=== PATIENT | male | born 1980 | race Caucasian/White ===

== ENCOUNTER 2023-07-07 12:49 | Inpatient (IN) | payer MEDICAID, SELFPAY ==
[2023-07-07 13:09] LABS: Basophils % 0.3 %; Eosinophils # 0.1 10^3/uL (0.0-0.8); Eosinophils % 0.5 %; Hematocrit 42.4 % (37-53); Lymphocytes # 2.5 10^3/uL (0.8-4.8); Lymphocytes % 26.3 %; Mean Corpuscular HGB Conc 32.5 g/dL (30-55); Mean Corpuscular Volume 89.1 fl (82-101); Mean Platelet Volume 8.8 fL (7.4-10.4); Monocytes % 10.3 %; Neutrophils # 5.84 10^3/uL (1.8-7.7); Neutrophils % 62.4 %; Nucleated Red Blood Cells % 0 %; Platelet Count 352 10^3/cmm (157-399); Red Blood Count 4.76 10^6/uL (3.85-5.65); Red Cell Distribution Width 13.6 % (12.1-15.1); White Blood Count 9.38 10^3/uL (3.29-11.43)
[2023-07-07 13:13] VITALS: BP 154/84; PULSE 95; RESP 17; TEMP 36.9; O2SAT 98
[2023-07-07 13:16] VITALS: BMI 29.8
[2023-07-07 13:25] LABS: Alanine Aminotransferase 32 U/L (0-41); Albumin Level 4.4 g/dL (3.5-5.2); Alkaline Phosphatase 126 U/L (40-130); Anion Gap 12.1 (5-19); Aspartate Amino Transferase 23 U/L (0-40); Blood Urea Nitrogen 14 mg/dL (6-20); Calcium 9.8 mg/dL (8.5-10.5); Carbon Dioxide 28 mmol/L (22-29); Chloride 102 mmol/L (98-107); Globulin 3.4 g/dL (1.3-4.6); Glomerular Filtration Rate 82.3 mL/min (90-130); Glucose 95 mg/dL (65-115); Osmolality Calculated 286 mOsm/kg (285-295); Potassium 4.1 mmol/L (3.5-5.1); Salicylate 0.7 mg/dL (3-10); Sodium 138 mmol/L (136-145); Total Bilirubin 0.3 mg/dL (0.15-1.2); Total Protein 7.8 g/dL (6.6-8.7)
[2023-07-07 13:28] LABS: Acetaminophen < 5.0 ug/mL (10-30); Alcohol Level < 10 mg/dL (0-10)
[2023-07-07 14:07] LABS: Add Urine Microscopic? NO; Charge for UA Resulting for Rev
[2023-07-07 14:21] LABS: Amphetamines Screen Urine Negative (Negative); Barbiturates Screen Urine Negative (Negative); Benzodiazepines Screen Urine Negative (Negative); Cocaine Screen Urine Negative (Negative); Opiate Screen Urine Negative (Negative); PCP Screen Urine Negative (Negative); THC Screen Urine Positive (Negative)
[2023-07-07 14:26] LABS: Urine Appearance Clear (CLEAR); Urine Color Yellow (Yellow); pH Urine 6.5 (5-7)
[2023-07-07 14:27] LABS: Bilirubin Urine Neg (Negative); Blood Urine Neg (Negative); Glucose Urine UA Norm (Normal); Ketones Urine Negative (Negative); Leukocyte Esterase Urine Negative (Negative); Nitrate Urine Negative (Negative); Protein Urine Neg (Negative); Specific Gravity, Urine 1.015 (1.005-1.030); Urobilinogen Urine Norm (Negative)
[2023-07-07] MEDS: HYDROcodone-acetaminophen 5-325 mg Tablet 1 TAB PO (14:59)
--- NOTE | 2023-07-07 15:03 | W.ED.PSYCHS ---
HPI - Psych General: Chief Complaint: Psychiatric Symptoms Stated Complaint: back pain, SI Time Seen by Provider: 07/07/23 12:55 Source: patient Mode of arrival: ambulatory Limitations: no limitations History of Present Illness: 43-year-old male states he been having low back pain he states he is loading with the other days been having low back pain since then. He also claims him severely depressed he has not been taking any of his depression meds. States has been having suicidal thoughts he states he does have a plan but he does not want talk about it and will not share it with me. Associated symptoms: Reports depression and suicidal ideation Review of Systems Const: Denies: fever(s), chills, body aches or change in appetite Eyes: Denies: blurry vision or eye discomfort ENMT: Denies: throat pain or dental pain Card: Denies: chest pain Resp: Denies: dyspnea GI: Denies: abdominal pain, nausea, vomiting or diarrhea Musc: Reports: back pain; Denies: neck pain Skin/Breast: Denies: rash Neuro: Denies: headache(s) Psych: Reports: depression and suicidal ideation Physical Exam Const: COMMON NORMALS: no acute distress, patient oriented x3 and healthy appearing HENMT: COMMON NORMALS: normocephalic and atraumatic HEAD & SCALP: normocephalic and atraumatic Neck/C-Spine: COMMON NORMALS: full ROM and supple Chest: COMMONS NORMALS: normal inspection of the chest and normal palpation of entire chest wall Resp: COMMON NORMALS: normal respiratory effort, No retractions, No use of accessory muscles and clear to auscultation bilaterally AUSCULTATION: clear to auscultation bilaterally Cardio: COMMON NORMALS: regular rate, regular rhythm and No murmurs present (Cardio) RATE: regular rate RHYTHM: regular rhythm GI: COMMON NORMALS: Normal to inspection, nondistended, normoactive bowel sounds present, Soft to palpation, non-tender and no masses PALPATION: Yes Soft to palpation Back/Pelvis: OTHER: tenderness to left lower back Extremity: COMMON NORMALS: normal to inspection and full ROM Neuro: COMMON NORMALS: patient oriented x3, moves all extremities and no focal motor deficits Psych: COMMON NORMALS: mental status grossly normal, Normal thought process present and cooperative THOUGHT PROCESS: Normal thought process present THOUGHT CONTENT: Yes Suicidality present Skin: COMMON NORMALS: no rashes or lesions noted and no wounds GENERAL SKIN EXAM: no rashes or lesions noted Course Vital Signs: Vital signs: Vital Signs Temperature 98.5 F 07/07/23 13:13 Pulse Rate 95 07/07/23 13:13 Respiratory Rate 17 07/07/23 13:13 Blood Pressure 154/84 07/07/23 13:13 Pulse Oximetry 98 07/07/23 13:13 Oxygen Delivery Me thod Room Air 07/07/23 13:13 MDM - Psych Medical Decision Making Patient presents here with suicidal ideation he also has back pain is likely musculoskeletal in nature. Patient's medically cleared here I spoke to the psychiatrist will admit to the psych marr this time. Medical Records I reviewed the patient's medical records. Lab Data I reviewed the patient's lab results. 07/07/23 13:02 07/07/23 13:02 Laboratory Results WBC 9.38 10^3/uL (3.29-11.43) 07/07/23 13:02 RBC 4.76 10^6/uL (3.85-5.65) 07/07/23 13:02 Hgb 13.80 g/dL (11.27-16.99) 07/07/23 13:02 Hct 42.4 % (37-53) 07/07/23 13:02 MCV 89.1 fl (82-101) 07/07/23 13:02 MCH 29.0 pg (27-33) 07/07/23 13:02 MCHC 32.5 g/dL (30-55) 07/07/23 13:02 RDW 13.6 % (12.1-15.1) 07/07/23 13:02 Plt Count 352 10^3/cmm (157-399) 07/07/23 13:02 MPV 8.8 fL (7.4-10.4) 07/07/23 13:02 Neut % (Auto) 62.4 % 07/07/23 13:02 Lymph % (Auto) 26.3 % 07/07/23 13:02 [place] % (Auto) 10.3 % 07/07/23 13:02 Eos % (Auto) 0.5 % 07/07/23 13:02 Baso % (Auto) 0.3 % 07/07/23 13:02 Neut # (Auto) 5.84 10^3/uL (1.8-7.7) 07/07/23 13:02 Lymph # (Auto) 2.5 10^3/uL (0.8-4.8) 07/07/23 13:02 [place] # (Auto) 1.0 10^3/uL (0.2-0.9) H 07/07/23 13:02 Eos # (Auto) 0.1 10^3/uL (0.0-0.8) 07/07/23 13:02 Baso # (Auto) 0.0 10^3/uL (0.0-0.1) 07/07/23 13:02 Nucleated RBC % (auto) 0 % 07/07/23 13:02 Nucleated RBCs # 0.0 /100WBC 07/07/23 13:02 Sodium 138 mmol/L (136-145) 07/07/23 13:02 Potassium 4.1 mmol/L (3.5-5.1) 07/07/23 13:02 Chloride 102 mmol/L (98-107) 07/07/23 13:02 Carbon Dioxide 28 mmol/L (22-29) 07/07/23 13:02 Anion Gap 12.1 (5-19) 07/07/23 13:02 BUN 14 mg/dL (6-20) 07/07/23 13:02 Creatinine 1.0 mg/dL (0.7-1.2) 07/07/23 13:02 GFR Calculation 82.3 mL/min (90-130) L 07/07/23 13:02 Glucose 95 mg/dL (65-115) 07/07/23 13:02 Calculated Osmolality 286 mOsm/kg (285-295) 07/07/23 13:02 Calcium 9.8 mg/dL (8.5-10.5) 07/07/23 13:02 Total Bilirubin 0.3 mg/dL (0.15-1.2) 07/07/23 13:02 AST 23 U/L (0-40) 07/07/23 13:02 ALT 32 U/L (0-41) 07/07/23 13:02 Alkaline Phosphatase 126 U/L (40-130) 07/07/23 13:02 Total Protein 7.8 g/dL (6.6-8.7) 07/07/23 13:02 Albumin 4.4 g/dL (3.5-5.2) 07/07/23 13:02 Globulin 3.4 g/dL (1.3-4.6) 07/07/23 13:02 Urine Color Yellow (Yellow) 07/07/23 14:02 Urine Appearance Clear (CLEAR) 07/07/23 14:02 Urine pH 6.5 (5-7) 07/07/23 14:02 Ur Specific [place] 1.015 (1.005-1.030) 07/07/23 14:02 Urine Protein Neg (Negative) 07/07/23 14:02 Urine Glucose (UA) Norm (Normal) 07/07/23 14:02 Urine Ketones Negative (Negative) 07/07/23 14:02 Urine Blood Neg (Negative) 07/07/23 14:02 Urine Nitrate Negative (Negative) 07/07/23 14:02 Urine Bilirubin Neg (Negative) 07/07/23 14:02 Urine Urobilinogen Norm mg/dL (Negative) 07/07/23 14:02 Ur Leukocyte Esterase Negative (Negative) 07/07/23 14:02 Salicylates 0.7 mg/dL (3-10) L 07/07/23 13:02 Urine Opiates Screen Negative ng/mL (Negative) 07/07/23 14:02 Acetaminophen < 5.0 ug/mL (10-30) L 07/07/23 13:02 Ur Barbiturates Screen Negative ng/mL (Negative) 07/07/23 14:02 Ur Phencyclidine Scrn Negative ng/mL (Negative) 07/07/23 14:02 Ur Amphetamines Screen Negative ng/mL (Negative) 07/07/23 14:02 U Benzodiazepines Scrn Negative ng/mL (Negative) 07/07/23 14:02 Urine Cocaine Screen Negative ng/mL (Negative) 07/07/23 14:02 U Marijuana (THC) Screen Positive ng/mL (Negative) H 07/07/23 14:02 Ethyl Alcohol < 10 mg/dL (0-10) 07/07/23 13:02 No radiology studies performed this visit Discharge Plan Discharge Admit Provider: Darrell Ponce Condition: Stable Coding Level of Care Code ED Data Processing Manager for Sakina Yang
--- NOTE | 2023-07-07 15:22 | PC.NURSE ---
96 hr patient rights reviewed with patient with assistance of KRISTINA Morton @1300. Education provided, no questions, concerns or needs verbalized at this time. Patient copy left with patient @bedside.
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
[2023-07-07] MEDS: ketorolac 60 mg/2 mL INJ IM (18:43)
[2023-07-07 20:30] VITALS: BP 131/82; PULSE 80; RESP 18; TEMP 36.7; O2SAT 96
[2023-07-07] MEDS: trazodone 50 mg Tablet PO (20:35)
[2023-07-07] MEDS: acetaminophen 325 mg Tablet 650 MG PO (20:35)
[2023-07-07] MEDS: hyDROXYzine 25 mg Capsule 50 MG PO (20:36)
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
[2023-07-07] MEDS: nicotine 4 mg lozenge MUCOUS MEM (20:58)
[2023-07-08] MEDS: ibuprofen 600 mg Tablet PO (04:26)
[2023-07-08] MEDS: nicotine 4 mg lozenge MUCOUS MEM ×5 (09:06→21:27)
[2023-07-08] MEDS: acetaminophen 325 mg Tablet 650 MG PO ×2 (10:03→15:15)
[2023-07-08] MEDS: ibuprofen 800 mg tablet PO ×2 (11:26→19:29)
--- NOTE | 2023-07-08 11:27 | XRR_ITS ---
PROCEDURE INFORMATION: Exam: XR Lumbosacral Spine Exam date and time: 07/08/2023 12:06 PM Age: 43 years old Clinical indication: Low back pain; Patient HX: Lower back pain due to picking firewood TECHNIQUE: Imaging protocol: Radiologic exam of the lumbosacral spine. Views: 2 or 3 views. COMPARISON: No relevant prior studies available. FINDINGS: Bones/joints: Spinal alignment is normal. Vertebral body height is maintained. Intervertebral disc height is maintained. Facet joints are unremarkable. No acute fracture. The visible portion of the pelvis and sacrum is intact. Visible portions of the ribs are intact. Soft tissues: Visible soft tissues are unremarkable. XR/XR lumbar spine 2-3V* [id number] IMPRESSION: No acute findings.
[2023-07-08 14:00] VITALS: BP 143/91; PULSE 88; RESP 20; TEMP 36.9; O2SAT 97
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
[2023-07-08 20:17] VITALS: BP 144/68; PULSE 79; RESP 18; TEMP 36.6; O2SAT 95
[2023-07-08] MEDS: risperiDONE 1 mg Tablet 0.5 MG PO (20:33)
[2023-07-08] MEDS: trazodone 50 mg Tablet PO ×2 (20:34→22:02)
[2023-07-08] MEDS: hyDROXYzine 25 mg Capsule 50 MG PO (22:02)
[2023-07-09] MEDS: OLANZapine 5 mg ODT PO (01:32)
[2023-07-09 06:00] VITALS: RESP 16
[2023-07-09] MEDS: ibuprofen 600 mg Tablet PO (07:39)
[2023-07-09] MEDS: nicotine 4 mg lozenge MUCOUS MEM ×5 (07:39→17:07)
[2023-07-09] MEDS: duloxetine 30 mg Capsule PO (10:08)
[2023-07-09] MEDS: acetaminophen 325 mg Tablet 650 MG PO (11:15)
[2023-07-09] MEDS: docusate sodium 100 mg Capsule PO (12:59)
[2023-07-09 14:00] VITALS: BP 132/92; PULSE 88; RESP 16; TEMP 37.1; O2SAT 98
[2023-07-09] MEDS: ibuprofen 800 mg tablet PO (15:02)
--- NOTE | 2023-07-09 16:11 | P.NPUDS_ITS ---
Diagnoses at Discharge Discharge Diagnosis (1) Depression, unspecified: Status: Acute (2) Suicidal ideation: Status: Acute Reason for Visit Reason for Visit: back pain, SI Brief History: History of Present Illness Capo Dunlap is a 43 year old male with a history of multiple inpatient hospitalizations most recently 1 month ago in [facility] who presented to the emergency department complaining of suicidal ideation along with lower back pain. The patient was admitted to the neuropsychiatric unit for further evaluation and treatment. Patient had reported that he had been residing at [facility] for the past few weeks and had been effectively homeless for several months and states that he had been feeling more depressed recently and stated that he had been having more frequent suicidal thoughts. The patient reports that he has chronic pain in his neck and states that he has been struggling with managing acute back pain. He states that he is had had problems with managing his care since he had an accident where an 80 pound roll of tar paper fell on his neck 2 years ago. He had reported loss of consciousness and states that he has struggled with his mood. He reports that he struggles with chronic headaches and stated that he had been concerned that again was somehow trying to kill him and that he had needed to get off the streets in order to avoid this from occurring. He had reported occasional use of marijuana and stated that he had occasional tempted to use methamphetamine in order to stay awake while he was homeless. He had stated that he had been hospitalized previously for psychosis and depression secondarily to the use of methamphetamine use. Patient reported that he had not been taking any medications recently. He had endorsed past history of paranoia and psychosis but denies any problems today with this problem. He had endorsed having worsening depression with an inability to manage his pain. He reports low energy and reports having infrequent suicidal thoughts. He reports having difficulties falling asleep and staying asleep. He denies any history of mynor. Inpatient hospitalizations: He reports at least 10 previous psychiatric hospitalizations over the last 2 years since the accident. He reports that he had recently been hospitalized in the hospital and near [facility] 1 month ago. Outpatient psychiatric history: He reports limited follow-up with outpatient psychiatrist stating that after his hospitalizations he has had limited psychotherapy or medication management under psychiatrist treatment other than having previously been treated for ADHD during his childhood and approximately 5 years well receiving treatment for ADHD as an adult. Previous medications include Vyvanse. Allergies: No known drug allergies Medical history: Renal stones, low testosterone Surgical history: Lithotripsy Current medications: Risperidone, olanzapine, doxepin, clonidine, Wellbutrin XL 150 mg daily Drug and alcohol history: Patient reports marijuana use, and a history of infrequent methamphetamine use. He has reported no drug or alcohol treatment in the past. Family psychiatric history: None Legal history: None actively Social history: The patient grew up near [facility] which is near [place]. He reports being raised by his biological parents. He reported no history of trauma during his childhood or adulthood. He has 1 older sibling. He had received some special education classes and had diagnosis of ADHD but earned a regular diploma graduated from high school. He had previously worked in [employer] for 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 He is currently not on disability. He had previously been living in a camper on his aunts property but left there a few months ago and had been homeless since that time. He does report having limited social supports. Hospital Course Hospital Course During the hospitalization, the patient had routine laboratory studies which were within normal limits except for a few outliers.? Additionally, there was a general medical evaluation which was also within normal limits and revealed no new acute processes.? At the time of discharge, lethality was denied and psychosis was resolving.? Mood and anxiety were well managed.? The patient endorsed a plan to avoid all drugs of abuse and follow up with the aftercare recommendations of the treatment team.? The patient was evaluated and deemed to be absent credible lethality and had achieved the maximum benefit from an i npatient hospitalization, and so was discharged.? His medication regimen was simplified and he was discharged on only Risperidone 1mg at night and Cymbalta 30mg daily (regarding psychotropic medications) He was agreeable to returning to [facility] as a temporary penitentiary for him. Involuntary Hold Information 96 Hour Hold: 96 Hour Involuntary Admission: Yes 96 Hour Hold Ending Date: 07/14/23 96 Hour Hold Ending Time: 13:37 Mental Status Exam MSE Comments: He is a pleasant white male who appeared his stated age with an antalgic gait as well. There was evidence of mild psychomotor retardation. He described his mood as better at discharge. His affect was mildly restricted at discharge. His speech was monotone in quality but normal in regards to rate and volume. There was no evidence of any abnormal involuntary motor movements tics or tremors appreciated. He denied suicidal ideation with no active plan. He did not endorse any homicidal ideation. He did not appear to be responding to internal stimuli. There was no evidence of delusional thinking. His attention span appeared variable. His recent and remote memory were grossly intact. His insight was fair. His judgment is adequate. His impulse control appeared fair on discharge. He was alert and oriented to person, place ,time ,and situation. Discharge Data Studies Completed and Pending: Completed Studies During Hospitalization Category Date Time Status XR lumbar spine 2 -3V* 44049 Routine Exams 07/08/23 11: Completed Radiology Impressions Lumbar Spine X-Ray 07/08/23 11:27 IMPRESSION: No acute findings. Laboratory Results WBC 9.38 10^3/uL (3.2 9-11.43) 07/07/23 13:02 RBC 4.76 10^6/uL (3.8 5-5.65) 07/07/23 13:02 Hgb 13.80 g/dL (11.27 -16.99) 07/07/23 13:02 Hct 42.4 % (37-53) 07/07/23 13:02 MCV 89.1 fl (82-101) 07/07/23 13:02 MCH 29.0 pg (27-33) 07/07/23 13:02 MCHC 32.5 g/dL (30-55) 07/07/23 13:02 RDW 13.6 % (12.1-15.1 ) 07/07/23 13:02 Plt Count 352 10^3/cmm (157 -399) 07/07/23 13:02 MPV 8.8 fL (7.4-10.4) 07/07/23 13:02 Neut % (Auto) 62.4 % 07/07/23 13:02 Lymph % (Auto) 26.3 % 07/07/23 13:02 Coffee % (Auto) 10.3 % 07/07/23 13:02 Eos % (Auto) 0.5 % 07/07/23 13:02 Baso % (Auto) 0.3 % 07/07/23 13:02 Neut # (Auto) 5.84 10^3/uL (1.8 -7.7) 07/07/23 13:02 Lymph # (Auto) 2.5 10^3/uL (0.8- 4.8) 07/07/23 13:02 Coffee # (Auto) 1.0 10^3/uL (0.2- 0.9) H 07/07/23 13:02 Eos # (Auto) 0.1 10^3/uL (0.0- 0.8) 07/07/23 13:02 Baso # (Auto) 0.0 10^3/uL (0.0- 0.1) 07/07/23 13:02 Nucleated RBC % (a uto) 0 % 07/07/23 13:02 Nucleated RBCs # 0.0 /100WBC 07/07/23 13:02 Sodium 138 mmol/L (136-1 45) 07/07/23 13:02 Potassium 4.1 mmol/L (3.5-5 .1) 07/07/23 13:02 Chloride 102 mmol/L (98-10 7) 07/07/23 13:02 Carbon Dioxide 28 mmol/L (22-29) 07/07/23 13:02 Anion Gap 12.1 (5-19) 07/07/23 13:02 BUN 14 mg/dL (6-20) 07/07/23 13:02 Creatinine 1.0 mg/dL (0.7-1. 2) 07/07/23 13:02 GFR Calculation 82.3 mL/min (90-1 30) L 07/07/23 13:02 Glucose 95 mg/dL (65-115) 07/07/23 13:02 Calculated Osmolal ity 286 mOsm/kg (285- 295) 07/07/23 13:02 Calcium 9.8 mg/dL (8.5-10 .5) 07/07/23 13:02 Total Bilirubin 0.3 mg/dL (0.15-1 .2) 07/07/23 13:02 AST 23 U/L (0-40) 07/07/23 13:02 ALT 32 U/L (0-41) 07/07/23 13:02 Alkaline Phosphata se 126 U/L (40-130) 07/07/23 13:02 Total Protein 7.8 g/dL (6.6-8.7 ) 07/07/23 13:02 Albumin 4.4 g/dL (3.5-5.2 ) 07/07/23 13:02 Globulin 3.4 g/dL (1.3-4.6 ) 07/07/23 13:02 Urine Color Yellow (Yellow) 07/07/23 14:02 Urine Appearance Clear (CLEAR) 07/07/23 14:02 Urine pH 6.5 (5-7) 07/07/23 14:02 Ur Specific Gravit y 1.015 (1.005-1.0 30) 07/07/23 14:02 Urine Protein Neg (Negative) 07/07/23 14:02 Urine Glucose (UA) Norm (Normal) 07/07/23 14:02 Urine Ketones Negative (Negati ve) 07/07/23 14:02 Urine Blood Neg (Negative) 07/07/23 14:02 Urine Nitrate Negative (Negati ve) 07/07/23 14:02 Urine Bilirubin Neg (Negative) 07/07/23 14:02 Urine Urobilinogen Norm mg/dL (Negat raisa) 07/07/23 14:02 Ur Leukocyte Jenny ase Negative (Negati ve) 07/07/23 14:02 Salicylates 0.7 mg/dL (3-10) L 07/07/23 13:02 Urine Opiates Scre en Negative ng/mL (N egative) 07/07/23 14:02 Acetaminophen < 5.0 ug/mL (10-3 0) L 07/07/23 13:02 Ur Barbiturates Sc reen Negative ng/mL (N egative) 07/07/23 14:02 Ur Phencyclidine S crn Negative ng/mL (N egative) 07/07/23 14:02 Ur Amphetamines Sc reen Negative ng/mL (N egative) 07/07/23 14:02 U Benzodiazepines Scrn Negative ng/mL (N egative) 07/07/23 14:02 Urine Cocaine Scre en Negative ng/mL (N egative) 07/07/23 14:02 U Marijuana (THC) Screen Positive ng/mL (N egative) H 07/07/23 14:02 Ethyl Alcohol < 10 mg/dL (0-10) 07/07/23 13:02 Vitals: Last Vital Signs Temp 98.7 F 07/09/23 14:00 Pulse 88 07/09/23 14:00 Resp 16 07/09/23 14:00 BP 132/92 07/09/23 14:00 Pulse Ox 98 07/09/23 14:00 O2 Del Method Room Air 07/09/23 14:00 Discharge Plan Discharge Patient Disposition: Home Condition: Stable Prescriptions: New risperidone 1 mg Tablet 1 mg PO 2100 30 Days Qty: 30 1RF duloxetine 30 mg Capsule,Delayed Release(Dr/Ec) 30 mg PO DAILY 30 Days Qty: 30 1RF Discontinued doxepin 50 mg capsule 50 mg PO BEDTIME clonidine HCl 0.1 mg tablet 0.1 mg PO BEDTIME olanzapine 10 mg tablet 10 mg PO BEDTIME risperidone 1 mg tablet 1 mg PO BID bupropion HCl 150 mg tablet extended release 24 hr 150 mg PO DAILY Discharge Orders: Discharge Order (Routine); Ordered 07/09/23 Ordered By: Edmund Thorne Referrals: [facility] [Outside] - 07/14/23 7:30 am (Initial appointment set for 07/14/23 @ 7:30 am. ) Riley Arora MD [Physician] - 07/13/23 3:00 pm (Establish care/hospital follow up) Discharge Diet: Usual diet Discharge Activity: Resume usual activity Patient Instructions: Opioid Safety Discharge Attestations NPU Time Spent in Discharge Care*: less than 30 min Specific Discharge Activities: Specific discharge activities: educating patient, discussing with case checker/social workers/dc planners and documenting/other paperwork Coding Level of Care Code Acute Code for Chg Fwd Diagnoses Depression, unspecified F32.A Suicidal ideation R45.851
[2023-07-09 16:37] VITALS: BP 132/92; PULSE 88; RESP 16; TEMP 37.1; O2SAT 98
== END 2023-07-09 18:00 | disposition home or self-care (01) | DRG 881 ==
LOC: ER 15:43 → NP 18:39
PROVIDERS: Admitting Provider Psychiatry & Neurology Psychiatry; Emergency Provider Emergency Medicine; Visit Provider Psychiatry & Neurology Psychiatry
DX: F32.A Depression, unspecified (principal); R45.851 Suicidal ideations; Z59.01 Sheltered homelessness; M54.50 Low back pain, unspecified; M54.2 Cervicalgia; G89.29 Other chronic pain
CPT/HCPCS: 36415; 72100; 80053; 80306; 80307; 81003; 85025; 96372; 97165; 99285; J1885

== ENCOUNTER → 2023-07-13 15:47 | Outpatient (BNVA) | payer MEDICAID, SELFPAY | PROVIDERS: Visit Provider Family Medicine Adult Medicine | DX: E03.9 Hypothyroidism, unspecified (principal); Z87.898 Personal history of other specified conditions; Z87.442 Personal history of urinary calculi; Z09 Encounter for follow-up examination after completed treatment for conditions other than malignant neoplasm; E06.3 Autoimmune thyroiditis; F33.3 Major depressive disorder, recurrent, severe with psychotic symptoms; M54.2 Cervicalgia; M54.9 Dorsalgia, unspecified; G89.29 Other chronic pain; F41.9 Anxiety disorder, unspecified | CPT/HCPCS: 84443; G0103 ==

== ENCOUNTER → 2023-08-27 13:34 | Outpatient (BNVA) | payer MEDICAID, SELFPAY | PROVIDERS: Visit Provider Registered Nurse Neonatal Intensive Care | DX: J02.9 Acute pharyngitis, unspecified (principal) | CPT/HCPCS: 87880 ==

== ENCOUNTER → 2023-10-11 12:28 | Outpatient (BNVA) | payer MEDICAID, SELFPAY | PROVIDERS: Visit Provider Nurse Practitioner Family | DX: E03.8 Other specified hypothyroidism (principal); E06.3 Autoimmune thyroiditis; J02.9 Acute pharyngitis, unspecified; R30.0 Dysuria; J30.2 Other seasonal allergic rhinitis; Z11.3 Encounter for screening for infections with a predominantly sexual mode of transmission | CPT/HCPCS: 87491; 87591 ==

== ENCOUNTER 2024-02-18 06:46 | Emergency (ER) | payer MEDICAID, SELFPAY ==
[2024-02-18 07:03] VITALS: BP 165/106; PULSE 101; RESP 18; TEMP 36.7; O2SAT 98; BMI 29.1
--- NOTE | 2024-02-18 07:16 | W.ED.BACK ---
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 He has some pain in his left leg. He has not had any urinary retention or fecal incontinence. This began on 8 to 7 days ago. He has not been seen for it prior to this. No traumatic injury falls motor vehicle accidents etc. Patient refers pain to the lumbosacral area. He states he has a history of kidney stones in the past but this feels different from his stones. Associated symptoms: Deny abdominal pain, chills, dysuria, fever(s) or urinary urgency Review of Systems Const: Denies: fever(s) or chills Card: Denies: chest pain Resp: Denies: dyspnea GI: Reports: change in stool character (loose stools); Denies: abdominal pain : Reports: urinary frequency; Denies: flank pain, dysuria or urinary urgency Musc: Denies: neck pain or back pain Skin/Breast: Denies: rash PFSH ED PFSH: Medical History Allergic rhinitis, seasonal URI (upper respiratory infection) Psychiatric care Personal history of kidney stones History of nocturia Anxiety Chronic neck and back pain Hypothyroid ADHD Low testosterone in male Surgical History H/O lithotripsy Hx of LASIK Family History Father No problems noted. Mother Benign tumor of back Mental and behavioral problem Social History Smoking and tobacco/nicotine status: current every day tobacco/nicotine user Quit status (tobacco/nicotine): not considering quitting Alcohol intake: former Substance/Drug Use: current Substance/Drug use frequency: Special occassions/opportunity only Physical Exam Const: GENERAL APPEARANCE: cooperative ORIENTATION/CONSCIOUSNESS: Yes awake, Yes oriented to person, Yes oriented to place and Yes oriented to time HENMT: COMMON NORMALS: normocephalic, atraumatic and hearing grossly normal bilaterally HEAD & SCALP: normocephalic and atraumatic Resp: COMMON NORMALS: normal respiratory effort, No retractions, No use of accessory muscles and clear to auscultation bilaterally AUSCULTATION: clear to auscultation bilaterally Cardio: COMMON NORMALS: regular rate, regular rhythm and No murmurs present (Cardio) RATE: regular rate RHYTHM: regular rhythm Extremity: COMMON NORMALS: normal to inspection, capillary refill normal, no clubbing, cyanosis or edema, no calf tenderness and no pedal edema Neuro: SENSORIUM/ORIENTATION: Yes oriented to person, Yes oriented to place and Yes oriented to time OTHER: Deep tendon reflexes +1/4 at the patellar tendon dorsal and plantarflexion 5 5 sensation lower extremities normal straight leg raising negative Skin: COMMON NORMALS: no rashes or lesions noted GENERAL SKIN EXAM: no rashes or lesions noted Course Vital Signs: Vital signs: Vital Signs Temperature 98.0 F 02/18/24 07:03 Pulse Rate 90 02/18/24 08:52 Respiratory Rate 18 02/18/24 07:03 Blood Pressure 130/82 02/18/24 08:52 Pulse Oximetry 98 02/18/24 08:52 Oxygen Delivery Me thod Room Air 02/18/24 07:03 MDM - Back Pain/Injury Medical Decision Making Suspect he has a nerve root irritation. A large component of this is musculoskeletal. For now would recommend the anti-inflammatories muscle relaxers and a steroid taper. He did have some improvement of symptoms since the original onset and as well as with medications given today. X-rays of the low back did not show any acute issues. Will discharge patient and have him follow-up with orthopedic spine clinic. Given 1 week off work to allow back to improve. Labs I reviewed the patient's lab results. Radiology Impressions Lumbar Spine X-Ray 02/18/24 07:18 IMPRESSION: Lumbar spine stable without significant discogenic or vertebral body abnormality. Sacroiliitis of unknown activity and significance. Stable. Laboratory Results Urine Color Yellow (Yellow) 02/18/24 07:23 Urine Appearance Clear (CLEAR) 02/18/24 07:23 Urine pH 6.0 (5-7) 02/18/24 07:23 Ur Specific [place] 1.010 (1.005-1.030) 02/18/24 07:23 Urine Protein Negative (Negative) 02/18/24 07:23 Urine Glucose (UA) Negative (Normal) 02/18/24 07:23 Urine Ketones Negative (Negative) 02/18/24 07:23 Urine Blood Negative (Negative) 02/18/24 07:23 Urine Nitrate Negative (Negative) 02/18/24 07:23 Urine Bilirubin Negative (Negative) 02/18/24 07:23 Urine Urobilinogen 1.0 mg/dL (Negative) 02/18/24 07:23 Ur Leukocyte Esterase Negative (Negative) 02/18/24 07:23 Urine RBC 0-2 /hpf (0-2) 02/18/24 07:23 Urine WBC 0-5 /hpf (0-5) 02/18/24 07:23 Ur Squamous Epith Cells 0-5 /hpf (0-5) 02/18/24 07:23 Amorphous Sediment Not Reportable 02/18/24 07:23 Urine Bacteria None seen /hpf (NONE) 02/18/24 07:23 Hyaline Casts 0-4 /lpf H 02/18/24 07:23 All radiology interpretation(s) finalized by discharge Discharge Plan Discharge Patient Disposition: Home Clinical Impression: Left lumbar radiculitis Condition: Stable Prescriptions: New prednisone 20 mg tablet 20 mg PO TID Qty: 15 0RF Rx Instructions: 1 p.o. 3 times daily x3 days, 1 p.o. twice daily x2 days, 1 p.o. daily x2 days diclofenac sodium 75 mg tablet,delayed release (DR/EC) 75 mg PO Q12H PRN (Reason: pain) Qty: 20 0RF methocarbamol 500 mg tablet 500 mg PO TID Qty: 30 0RF No Action levothyroxine 75 mcg capsule 75 mcg PO DAILY 30 Days Qty: 30 5RF Flonase Allergy Relief 50 mcg/actuation spray,suspension 1 spray intranasal BID PRN (Reason: ALLERGIES) Discharge Orders: Discharge ED (Routine); Ordered 02/18/24 Ordered By: Silverio Calles Discharge Diet: Usual diet Discharge Activity: Resume usual activity Patient Instructions: Opioid Safety, Pain Management Activity Restrictions/Additional Instructions: Thank you for choosing [facility] for your healthcare needs today. It is very important that you follow up as instructed or that you return to the Emergency Department should you have concerns or if your condition changes or worsens in any way. You were seen today for back pain with left leg radicular symptoms. Recommend you start oral steroids tomorrow you can use the diclofenac and the methocarbamol as needed for discomfort. Case management will make arrangements for you to follow-up with orthopedic spine surgery. Stand Alone Forms: Work/School Release Coding Level of Care Code ED Teletray Operator for Sakina Yang
--- NOTE | 2024-02-18 07:18 | XR_ITS ---
WS: [id number] XR lumbar spine 2-3V* [id number] REASON FOR EXAM: back pain FINDINGS: The lumbar spine is unchanged compared to 06/18/2023. No focal vertebral body abnormality. Disc spaces intact with minimal narrowing at L5-S1. Wide sclerotic margins along the sacroiliac joints without erosion, bridging, or fusion. No change fr om 07/08/2023. XR/XR lumbar spine 2-3V* [id number] IMPRESSION: Lumbar spine stable without significant discogenic or vertebral body abnormalit y. Sacroiliitis of unknown activity and significance. Stable.
[2024-02-18 07:30] LABS: Charge for UA Resulting for Rev
[2024-02-18 07:38] LABS: Bilirubin Urine Negative (Negative); Blood Urine Negative (Negative); Glucose Urine UA Negative (Normal); Ketones Urine Negative (Negative); Leukocyte Esterase Urine Negative (Negative); Nitrate Urine Negative (Negative); Protein Urine Negative (Negative); Urine Appearance Clear (CLEAR); Urine Color Yellow (Yellow)
[2024-02-18 07:42] LABS: Bacteria Urine None Seen /hpf; Hyaline Casts Urine 0-4 /lpf; RBC Urine 0-2 /hpf (0-2); Squamous Epithelial Cell Urine 0-5 /hpf (0-5); WBC Urine 0-5 /hpf (0-5)
[2024-02-18] MEDS: dexamethasone 10 mg/mL INJ IM (07:42)
[2024-02-18] MEDS: ketorolac 30 mg/mL INJ IVP (07:42)
[2024-02-18] MEDS: orphenadrine 30 mg/mL Inj 2 mL 60 MG IM (07:44)
[2024-02-18 08:52] VITALS: BP 130/82; PULSE 90; O2SAT 98
--- NOTE | 2024-02-19 05:05 | DCPLANNER ---
Message sent to Ortho Spine surgeon referral- left leg radiculopathy-
== END 2024-02-18 08:53 | disposition home or self-care (01) ==
PROVIDERS: Emergency Provider Family Medicine
DX: M54.16 Radiculopathy, lumbar region (principal)
CPT/HCPCS: 72100; 81003; 81015; 96372; 96374; 99284; J1100; J1885; J2360

== ENCOUNTER → 2024-04-25 13:54 | Outpatient (BNVA) | payer MEDICAID, SELFPAY | PROVIDERS: Visit Provider Orthopaedic Surgery | DX: M54.9 Dorsalgia, unspecified (principal) | CPT/HCPCS: 72110 ==

== ENCOUNTER 2024-05-03 15:05 | Outpatient (CLI) | payer OTHER, SELFPAY ==
--- NOTE | 2024-05-03 15:15 | MR_ITS ---
WS: [id number] MRI LUMBAR SPINE NONCONTRAST HISTORY: back pain COMPARISON: None available. TECHNIQUE: Sagittal and axial multisequence imaging is submitted. Normal lumbar alignment with no compression fractures or marrow edema. Mild disc desiccation at L5-S1 without loss of height. Conus terminates normally at L1-2 disc level. L1-L2: Small bilateral paracentral disc protrusions without stenosis. L2-L3: Mild facet and ligamentum flavum arthropathy. No stenosis or focal disc protrusion. L3-L4: Mild ligamentum flavum and facet arthritis. L4-L5: Mild annular disc bulging with small bilateral foraminal disc protrusions which slightly encro ach upon the exiting L4 nerve roots. No stenosis. L5-S1: Mild annular disc bulging with a central disc protrusion. Small bilateral foraminal osteophyte s. Mild to moderate LEFT foraminal stenosis due to disc bulging and osteophytes. Mild RIGHT foraminal stenosis. MR/MR lumbar spine wo con* [id number] IMPRESSION: 1. No high-grade central stenosis or acute fracture. 2. L5-S1: Mild to moderate LEFT foraminal stenosis due to disc disease and ost eophytes. Mild RIGHT foraminal stenosis. Most significant encroachment upon the LEFT exiting L5 nerve root. 3. Small central disc protrusion at L5-S1. Does not appear to be contacting th e S1 nerve roots. 4. L4-5: Small bilateral foraminal disc protrusions minimally encroaching upon the exiting L4 nerve roots.
== END 2024-05-03 15:06 | disposition home or self-care (01) ==
LOC: RAD 15:06
PROVIDERS: Visit Provider Orthopaedic Surgery
DX: M99.63 Osseous and subluxation stenosis of intervertebral foramina of lumbar region (principal); M99.64 Osseous and subluxation stenosis of intervertebral foramina of sacral region
CPT/HCPCS: 72148

== ENCOUNTER → 2024-05-04 14:39 | Outpatient (BNVA) | payer OTHER, SELFPAY | PROVIDERS: Visit Provider Family Medicine | DX: R07.9 Chest pain, unspecified (principal) | CPT/HCPCS: 71046 ==

== ENCOUNTER 2024-05-04 14:59 | Outpatient (CLI) | payer OTHER, SELFPAY ==
[2024-05-04 15:41] LABS: Basophils % 0.5 %; Eosinophils # 0.1 10^3/uL (0.0-0.8); Eosinophils % 0.8 %; Lymphocytes # 2.5 10^3/uL (0.8-4.8); Lymphocytes % 32.5 %; Mean Corpuscular Hemoglobin 29.4 pg (27-33); Mean Platelet Volume 9.2 fL (7.4-10.4); Monocytes # 0.7 10^3/uL (0.2-0.9); Monocytes % 8.6 %; Neutrophils # 4.41 10^3/uL (1.8-7.7); Neutrophils % 57.3 %; Nucleated Red Blood Cells % 0 %; Platelet Count 340 10^3/cmm (157-399); Red Blood Count 4.83 10^6/uL (3.85-5.65); Red Cell Distribution Width 12.5 % (12.1-15.1); White Blood Count 7.69 10^3/uL (3.29-11.43)
[2024-05-04 16:13] LABS: Alanine Aminotransferase 37 U/L (0-41); Albumin Level 4.6 g/dL (3.5-5.2); Alkaline Phosphatase 92 U/L (40-130); Aspartate Amino Transferase 34 U/L (0-40); Blood Urea Nitrogen 14 mg/dL (6-20); Carbon Dioxide 27 mmol/L (22-29); Chloride 102 mmol/L (98-107); Globulin 3.2 g/dL (1.3-4.6); Glomerular Filtration Rate 73.8 mL/min (90-130); Glucose 104 mg/dL (65-115); Lipase 25 U/L (13-60); Osmolality Calculated 289 mOsm/kg (285-295); Sodium 139 mmol/L (136-145); Total Bilirubin 0.2 mg/dL (0.15-1.2); Total Protein 7.8 g/dL (6.6-8.7)
[2024-05-04 16:26] LABS: Estmated Average Glucose 108; Hemoglobin A1C 5.4 % (4.0-6.0)
[2024-05-04 17:04] LABS: Free T4 Free Thyroxine 1.16 ng/dL (0.82-1.77)
[2024-05-05 15:24] LABS: Anti-Nuclear Antibody Screen NEGATIVE (NEGATIVE)
[2024-05-05 15:39] LABS: RPR w(Moniotor) w/REFL Titer NON-REACTIVE (NON-REACTIVE)
[2024-05-05 22:39] LABS: HLA-B27 NEGATIVE (NEGATIVE)
[2024-05-06 19:40] LABS: Beef (27) IgE <0.10 kU/L; Beef Class 0; Lamb (F88) IgE <0.10 kU/L; Lamb Class 0; Pork (F26) IgE <0.10 kU/L; Pork Class 0
[2024-05-09 18:59] LABS: Galactose-alpha-1,3 IgE <0.10 kU/L (<0.10)
== END 2024-05-04 15:00 | disposition home or self-care (01) ==
LOC: LAB 15:03
PROVIDERS: PCP Family Medicine; Visit Provider Family Medicine
DX: R07.9 Chest pain, unspecified (principal); E03.8 Other specified hypothyroidism; E06.3 Autoimmune thyroiditis; H20.9 Unspecified iridocyclitis; R19.7 Diarrhea, unspecified
CPT/HCPCS: 36415; 80053; 83036; 83690; 84439; 84443; 85025; 86003; 86008; 86038; 86140; 86431; 86592; 86812

== ENCOUNTER 2024-05-18 06:58 | Outpatient (RCR) | payer OTHER, SELFPAY | END 2024-06-10 23:59 | disposition home or self-care (01) | LOC: SPT 06:58 | PROVIDERS: Visit Provider Orthopaedic Surgery | DX: M54.50 Low back pain, unspecified (principal) | CPT/HCPCS: 97110; 97161 ==

== ENCOUNTER 2024-06-11 06:00 | Outpatient (RCR) | payer OTHER, SELFPAY | END 2024-07-11 23:59 | disposition home or self-care (01) | LOC: SPT 06:00 | PROVIDERS: Visit Provider Orthopaedic Surgery | DX: M54.9 Dorsalgia, unspecified (principal); G89.29 Other chronic pain | CPT/HCPCS: 97110 ==

== ENCOUNTER → 2024-06-30 09:33 | Outpatient (BNVA) | payer OTHER, SELFPAY | DX: J02.9 Acute pharyngitis, unspecified (principal) | CPT/HCPCS: 87880 ==

== ENCOUNTER 2024-07-12 06:00 | Outpatient (RCR) | payer OTHER, SELFPAY | END 2024-08-11 23:59 | disposition home or self-care (01) | LOC: SPT 06:00 | PROVIDERS: Visit Provider Orthopaedic Surgery | DX: M54.50 Low back pain, unspecified (principal) | CPT/HCPCS: 97110 ==

== ENCOUNTER → 2024-08-11 11:14 | Outpatient (BNVA) | payer OTHER, SELFPAY | PROVIDERS: Visit Provider Family Medicine | DX: E03.8 Other specified hypothyroidism (principal); E06.3 Autoimmune thyroiditis; R19.7 Diarrhea, unspecified; K92.1 Melena | CPT/HCPCS: 83540; 84439; 84443; 85025 ==

== ENCOUNTER 2024-08-12 06:00 | Outpatient (RCR) | payer OTHER, SELFPAY | END 2024-09-08 23:59 | disposition home or self-care (01) | LOC: SPT 06:00 | PROVIDERS: Visit Provider Orthopaedic Surgery | DX: M54.50 Low back pain, unspecified (principal) | CPT/HCPCS: 97110 ==

== ENCOUNTER 2024-09-09 06:00 | Outpatient (RCR) | payer OTHER, SELFPAY | END 2024-10-09 23:59 | disposition home or self-care (01) | LOC: SPT 06:00 | PROVIDERS: Visit Provider Orthopaedic Surgery | DX: M54.50 Low back pain, unspecified (principal) | CPT/HCPCS: 97110 ==

== ENCOUNTER 2024-10-05 11:29 | Inpatient (IN) | payer SELFPAY ==
[2024-10-05 11:50] VITALS: BP 144/92; PULSE 98; RESP 18; TEMP 36.6; O2SAT 96
[2024-10-05 12:06] VITALS: BP 133/98; PULSE 99; RESP 14; TEMP 36.7; O2SAT 99; BMI 29.0
--- NOTE | 2024-10-05 12:07 | W.ED.PSYCHS ---
HPI - Psych General: Chief Complaint: Psychiatric Symptoms Stated Complaint: anxiety Time Seen by Provider: 10/05/24 11:54 Source: patient Mode of arrival: ambulatory Limitations: no limitations History of Present Illness: 44-year-old male states that he has been having extreme anxiety along with depression since February. States his life is falling apart and he is now having suicidal ideations with a plan to kill himself and wants to get help. He denies any worsening improving factors. Associated symptoms: Reports depression and suicidal ideation Related Data Home Medications ?Medication ?Instructions ?Recorded ?Confirmed fluticasone propionate 50 1 spray intranasal BID PRN 02/18/24 10/02/24 mcg/actuation nasal ALLERGIES spray,suspension (Flonase Allergy Relief) Previous Rx's ?Medication ?Instructions ?Recorded levothyroxine 100 mcg tablet 100 mcg PO DAILY #90 tabs 05/05/24 tens unit #1 ea 06/27/24 albuterol sulfate 90 mcg/actuation 2 puff inhalation Q6H PRN 06/30/24 aerosol inhaler shortness of breath or wheezing #8.5 grams gabapentin 300 mg capsule 600 mg (2 x 300 mg) PO TID 30 days 09/12/24 #180 caps duloxetine 30 mg capsule,delayed 30 mg PO DAILY PRN muscle pain #30 10/02/24 release (Cymbalta) caps methylprednisolone 4 mg tablets in See Rx Instructions PO PER PKG DIR 10/02/24 a dose pack (Medrol (Hansel)) #21 ea Allergies Allergy/AdvReac Type Severity Reaction Status Date / Time No Known Allergies Allergy Verified 10/02/24 12:50 Review of Systems Const: Denies: fever(s), chills, body aches or change in appetite Eyes: Denies: eye discomfort ENMT: Denies: throat pain or dental pain Card: Denies: chest pain Resp: Denies: dyspnea GI: Denies: abdominal pain, nausea, vomiting or diarrhea Musc: Denies: neck pain or back pain Skin/Breast: Denies: rash Neuro: Denies: headache(s) Psych: Reports: depression and suicidal ideation [facility] ED PFSH: Medical History Reactive depression (situational) Hematochezia Diarrhea Iridocyclitis Dxed OD by DR. Guzmán OD in [place] Allergic rhinitis, seasonal Personal history of kidney stones History of nocturia Anxiety Chronic neck and back pain Hypothyroid ADHD Low testosterone in male he is getting testosterone through on line doctor Surgical History H/O lithotripsy Hx of LASIK Family History Father Liver disease of alcoholic cirrhosis Mother Benign tumor of back Mental and behavioral problem Heart disease, Onset Age: 58 of [place] 2 wks shy of divorce Grandfather Prostate cancer Social History Smoking and tobacco/nicotine status: current every day tobacco/nicotine user e-cigarettes Quit status (tobacco/nicotine): not considering quitting Alcohol intake: former Substance/Drug Use: never Household members: significant other Marital status: Single Number of children: 0 Highest education level completed: High School Graduate Current occupational status: employed 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[employer] Physical Exam Const: COMMON NORMALS: no acute distress, patient oriented x3 and healthy appearing HENMT: COMMON NORMALS: normocephalic and atraumatic HEAD & SCALP: normocephalic and atraumatic Eye: COMMON NORMALS: conjunctivae normal CONJUNCTIVA: Yes conjunctivae normal Neck/C-Spine: COMMON NORMALS: full ROM and supple Chest: COMMONS NORMALS: normal inspection of the chest Resp: COMMON NORMALS: normal respiratory effort Cardio: COMMON NORMALS: regular rate RATE: regular rate Extremity: COMMON NORMALS: normal to inspection and full ROM Neuro: COMMON NORMALS: patient oriented x3, moves all extremities and no focal motor deficits Psych: COMMON NORMALS: Normal thought process present MOOD & AFFECT: Yes anxious THOUGHT PROCESS: Normal thought process present THOUGHT CONTENT: Yes Suicidality present Skin: COMMON NORMALS: no rashes or lesions noted and no wounds GENERAL SKIN EXAM: no rashes or lesions noted Course Vital Signs: Vital signs: Vital Signs Temperature 98.1 F 10/05/24 12:06 Pulse Rate 99 10/05/24 12:06 Respiratory Rate 14 10/05/24 12:06 Blood Pressure 133/98 10/05/24 12:06 Pulse Oximetry 99 10/05/24 12:06 Oxygen Delivery Me thod Room Air 10/05/24 12:06 MDM - Psych Medical Decision Making Patient presents here with suicidal ideations he is medically cleared I spoke to the psychiatrist will admit at this time Medical Records I reviewed the patient's medical records. Lab Data I reviewed the patient's lab results. 10/05/24 12:19 10/05/24 12:19 Laboratory Results WBC 9.31 10^3/uL (3.29-11.43) 10/05/24 12:19 RBC 4.97 10^6/uL (3.85-5.65) 10/05/24 12:19 Hgb 15.00 g/dL (11.27-16.99) 10/05/24 12:19 Hct 45.2 % (37-53) 10/05/24 12:19 MCV 90.9 fl (82-101) 10/05/24 12:19 MCH 30.2 pg (27-33) 10/05/24 12:19 MCHC 33.2 g/dL (30-55) 10/05/24 12:19 RDW 13.1 % (12.1-15.1) 10/05/24 12:19 Plt Count 381 10^3/cmm (157-399) 10/05/24 12:19 MPV 9.5 fL (7.4-10.4) 10/05/24 12:19 Neut % (Auto) 62.9 % 10/05/24 12:19 Lymph % (Auto) 27.8 % 10/05/24 12:19 Stafford % (Auto) 8.8 % 10/05/24 12:19 Eos % (Auto) 0.0 % 10/05/24 12:19 Baso % (Auto) 0.3 % 10/05/24 12:19 Neut # (Auto) 5.85 10^3/uL (1.8-7.7) 10/05/24 12:19 Lymph # (Auto) 2.6 10^3/uL (0.8-4.8) 10/05/24 12:19 Stafford # (Auto) 0.8 10^3/uL (0.2-0.9) 10/05/24 12:19 Eos # (Auto) 0.0 10^3/uL (0.0-0.8) 10/05/24 12:19 Baso # (Auto) 0.0 10^3/uL (0.0-0.1) 10/05/24 12:19 Nucleated RBC % (auto) 0 % 10/05/24 12:19 Nucleated RBCs # 0.0 /100WBC 10/05/24 12:19 Urine Opiates Screen Negative ng/mL (Negative) 10/05/24 12:00 Ur Barbiturates Screen Negative ng/mL (Negative) 10/05/24 12:00 Ur Phencyclidine Scrn Negative ng/mL (Negative) 10/05/24 12:00 Ur Amphetamines Screen Negative ng/mL (Negative) 10/05/24 12:00 U Benzodiazepines Scrn Negative ng/mL (Negative) 10/05/24 12:00 Urine Cocaine Screen Negative ng/mL (Negative) 10/05/24 12:00 U Marijuana (THC) Screen Positive ng/mL (Negative) H 10/05/24 12:00 No radiology studies performed this visit Discharge Plan Discharge Patient Disposition: Admitted As Inpatient Admit Provider: Darrell Ponce Clinical Impression: Suicidal ideation Condition: Stable Coding Level of Care Code ED Buyer Planner for Sakina Yang
[2024-10-05] MEDS: LORazepam 2 mg/mL INJ 1 mL IM (12:16)
[2024-10-05 12:25] LABS: Amphetamines Screen Urine Negative (Negative); Barbiturates Screen Urine Negative (Negative); Benzodiazepines Screen Urine Negative (Negative); Cocaine Screen Urine Negative (Negative); Opiate Screen Urine Negative (Negative); PCP Screen Urine Negative (Negative); THC Screen Urine Positive (Negative)
--- NOTE | 2024-10-05 12:28 | PC.NURSE ---
96 hour hold rights read and reviewed with patient. Quan from Security present during reading of rights. Patient verbalized understandings and copy of rights given to patient.
[2024-10-05 12:31] LABS: Basophils % 0.3 %; Hematocrit 45.2 % (37-53); Lymphocytes # 2.6 10^3/uL (0.8-4.8); Lymphocytes % 27.8 %; Mean Corpuscular HGB Conc 33.2 g/dL (30-55); Mean Corpuscular Hemoglobin 30.2 pg (27-33); Mean Corpuscular Volume 90.9 fl (82-101); Mean Platelet Volume 9.5 fL (7.4-10.4); Monocytes # 0.8 10^3/uL (0.2-0.9); Monocytes % 8.8 %; Neutrophils # 5.85 10^3/uL (1.8-7.7); Neutrophils % 62.9 %; Nucleated Red Blood Cells % 0 %; Platelet Count 381 10^3/cmm (157-399); Red Blood Count 4.97 10^6/uL (3.85-5.65); Red Cell Distribution Width 13.1 % (12.1-15.1); White Blood Count 9.31 10^3/uL (3.29-11.43)
[2024-10-05 13:04] LABS: Alanine Aminotransferase 19 U/L (0-41); Albumin Level 4.4 g/dL (3.5-5.2); Alkaline Phosphatase 76 U/L (40-130); Anion Gap 16.5 (5-19); Aspartate Amino Transferase 25 U/L (0-40); Blood Urea Nitrogen 9 mg/dL (6-20); Calcium 9.2 mg/dL (8.5-10.5); Carbon Dioxide 25 mmol/L (22-29); Chloride 102 mmol/L (98-107); Glomerular Filtration Rate 73.4 mL/min (90-130); Glucose 116 mg/dL (65-115); Osmolality Calculated 290 mOsm/kg (285-295); Potassium 3.5 mmol/L (3.5-5.1); Sodium 140 mmol/L (136-145); Thyroid Stimulating Hormone 0.06 uIU/mL (0.27-4.20); Total Bilirubin 0.4 mg/dL (0.15-1.2); Total Protein 7.4 g/dL (6.6-8.7)
[2024-10-05 13:08] LABS: Acetaminophen < 5.0 ug/mL (10-30); Alcohol Level < 10 mg/dL (0-10); Salicylate < 0.3 mg/dL (3-10)
[2024-10-05 14:43] VITALS: BP 141/92; PULSE 92; O2SAT 98
[2024-10-05 15:43] VITALS: BP 122/86; PULSE 91; RESP 17; TEMP 36.8; O2SAT 99
[2024-10-05] MEDS: OLANZapine 5 mg ODT PO (16:06)
--- NOTE | 2024-10-05 17:05 | PC.NURSE ---
Pt states that he has been dealing with a work comp back injury for 39 weeks. He has been seeing providers and getting PT at [facility]. His most recent medication addition is a steroid dose pack. He states that it has changed his back pain, but didn't get rid of it, It's different now. He states that because of the ongoing work comp he has lost his home, at risk of losing his car, is having to rent a storage shed to live in. He is stating that the Dr needs to know he is not interested in any medications for his mental health. He believes that we need to get to the root cause of his mental health issues and it's not through medications. He states that he is the most frustrated with Dr. Gasca. He is endorsing SI and has a plan, but doesn't wish to discuss that with us at this time. He refused to answer the majority of the admission assessment, because he states, that is all in my chart and I am tired of answering all the same questions constantly. States that when he comes in to ER they ask who his PCP is and he states that is all in his chart and he is tired of feeling like no one anything about him, but he's here all the time. He states that he woke up this morning and his chest was tight and his legs were cramping. States that he came to the hospital to get help, but now he regrets that he did that here. He feels he should have gone somewhere else, that no one here cares about his mental health. He states that he has been having trouble with his mental health for some time and telling people, but no cares and they won't help him. He stated he didn't want to talk about any of this anymore he was getting anxious and frustrated, asked for ice water. I offered medication for anxiety and just let him rest. He accepted. Pt is on a 96 hour hold. Positive for THC. ER states that he has a hx of being combative.
--- NOTE | 2024-10-05 17:52 | PC.NURSE ---
New orders received from Dr. Ponce for restarting pt home cymbalta, Gabapentin, and levothyroxine.
[2024-10-05] MEDS: hyDROXYzine 25 mg Capsule 50 MG PO (21:58)
[2024-10-05] MEDS: gabapentin 300 mg Capsule 600 MG PO (21:58)
[2024-10-05] MEDS: trazodone 50 mg Tablet PO (21:58)
[2024-10-06] MEDS: levothyroxine 100 mcg Tablet PO (05:28)
[2024-10-06 06:00] VITALS: BP 111/69; PULSE 79; RESP 16; TEMP 36.4; O2SAT 96
[2024-10-06] MEDS: nicotine 2 mg Gum BUCCAL ×2 (08:02→11:53)
[2024-10-06] MEDS: hyDROXYzine 25 mg Capsule 50 MG PO (08:08)
[2024-10-06] MEDS: duloxetine 30 mg Capsule PO (08:08)
[2024-10-06] MEDS: gabapentin 300 mg Capsule 600 MG PO ×3 (08:08→20:17)
--- NOTE | 2024-10-06 11:54 | P.NPUHP_ITS ---
Providers/Chief Complaint 2 Admitting Physician: Darrell Ponce MD Chief Complaint: anxiety HPI NPU History of Present Illness Capo Dunlap is a 44 year old male who presented to the emergency department with the following report: Chief Complaint: Psychiatric Symptoms Stated Complaint: anxiety Time Seen by Provider: 10/05/24 11:54 Source: patient Mode of arrival: ambulatory Limitations: no limitations History of Present Illness: 44-year-old male states that he has been having extreme anxiety along with depression since February. States his life is falling apart and he is now having suicidal ideations with a plan to kill himself and wants to get help. He denies any worsening improving factors. Associated symptoms: Reports depression and suicidal ideation. He was admitted to the neuropsychiatric unit for definitive treatment of those issues. He is known to [facility] through limited inpatient and some outpatient services namely through the crisis stabilization center. An excerpt of his inpatient discharge summary is included below for context and the fact that there limited substantive changes. He presented today reporting that he is struggling. He reports that he had a very bad injury last February which left him disabled and insurance companies playing games with him. Because of the games or playing he has lost his house and is about to be homeless and lost his car or is about to lose his car and is depressed and suicidal because of that. He reports that there is no way he will get better and less the situation changes in the situation will only change if the insurance company fixes with a gun. And he reports that he should not have to take medication because of the depression and suicidality that they caused. And that he will not take any medication and he will not leave the hospital until he is better. Then we discharged home before he is better he will kill himself. Otherwise he denies any other issues and reports that he is not adding or changing medication. Per his 07/09/2023 [facility] inpatient psychiatric discharge summary: Discharge Diagnosis (1) Depression, unspecified: Status: Acute (2) Suicidal ideation: Status: Acute Reason for Visit Reason for Visit: back pain, SI Brief History: History of Present Illness Capo Dunlap is a 43 year old male with a history of multiple inpatient hospitalizations most recently 1 month ago in [facility] who presented to the emergency department complaining of suicidal ideation along with lower back pain. The patient was admitted to the neuropsychiatric unit for further evaluation and treatment. Patient had reported that [facility] and had been effectively homeless for several months and states that he had been feeling more depressed recently and stated that he had been having more frequent suicidal thoughts. The patient reports that he has chronic pain in his neck and states that he has been struggling with managing acute back pain. He states that he is had had problems with managing his care since he had an accident where an 80 pound roll of tar paper fell on his neck 2 years ago. He had reported loss of consciousness and states that he has struggled with his mood. He reports that he struggles with chronic headaches and stated that he had been concerned that again was somehow trying to kill him and that he had needed to get off the streets in order to avoid this from occurring. He had reported occasional use of marijuana and stated that he had occasional tempted to use methamphetamine in order to stay awake while he was homeless. He had stated that he had been hospitalized previously for psychosis and depression secondarily to the use of methamphetamine use. Patient reported that he had not been taking any medications recently. He had endorsed past history of paranoia and psychosis but denies any problems today with this problem. He had endorsed having worsening depression with an inability to manage his pain. He reports low energy and reports having infrequent suicidal thoughts. He reports having difficulties falling asleep and staying asleep. He denies any history of mynor. Inpatient hospitalizations: He reports at least 10 previous psychiatric hospitalizations over the last 2 years since the accident. He reports that he had recently been hospitalized in the hospital and near [facility] 1 month ago. Outpatient psychiatric history: He reports limited follow-up with outpatient psychiatrist stating that after his hospitalizations he has had limited psychotherapy or medication management under psychiatrist treatment other than having previously been treated for ADHD during his childhood and approximately 5 years well receiving treatment for ADHD as an adult. Previous medications include Vyvanse. Allergies: No known drug allergies Medical history: Renal stones, low testosterone Surgical history: Lithotripsy Current medications: Risperidone, olanzapine, doxepin, clonidine, Wellbutrin XL 150 mg daily Drug and alcohol history: Patient reports marijuana use, and a history of infrequent methamphetamine use. He has reported no drug or alcohol treatment in the past. Family psychiatric history: None Legal history: None actively Social history: The patient grew up near [facility] which is near [place]. He reports being raised by his biological parents. He reported no history of trauma during his childhood or adulthood. He has 1 older sibling. He had received some special education classes and had diagnosis of ADHD but earned a regular diploma graduated from high school. 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 He is currently not on disability. He had previously been living in a camper on his aunts property but left there a few months ago and had been homeless since that time. He does report having limited social supports. Hospital Course During the hospitalization, the patient had routine laboratory studies which were within normal limits except for a few outliers. Additionally, there was a general medical evaluation which was also within normal limits and revealed no new acute processes. At the time of discharge, lethality was denied and psychosis was resolving. Mood and anxiety were well managed. The patient endorsed a plan to avoid all drugs of abuse and follow up with the aftercare recommendations of the treatment team. The patient was evaluated and deemed to be absent credible lethality and had achieved the maximum benefit from an inpatient hospitalization, and so was discharged. His medication regimen was simplified and he was discharged on only Risperidone 1mg at night and Cymbalta 30mg daily (regarding psychotropic medications) He was agreeable to returning to [facility] as a temporary usp for him. Meds NPU Home Medications ?Medication ?Instructions ?Recorded ?Confirmed ?Last Taken ?Type levothyroxine 100 mcg tablet 100 mcg PO DAILY #90 tabs 05/05/24 10/05/24 Unknown Rx tens unit #1 ea 06/27/24 10/05/24 Unkn own Rx gabapentin 300 mg capsule 600 mg (2 x 300 mg) PO TID 3 0 days 09/12/24 10/05/24 Unknown Rx #180 caps duloxetine 30 mg capsule,delayed 30 mg PO DAILY PRN mu scle pain #30 10/02/24 10/05/24 Unknown Rx release (Cymbalta) caps methylprednisolone 4 mg tablets in See Rx Instructions PO PER PKG DIR 10/02/24 10/05/24 Unknown Rx a dose pack (Medrol (Hansel)) #21 ea Allergies Allergy/AdvReac Type Severity Reaction Status Date / Time No Known Allergies Allergy Verified 10/05/24 16:05 PFSH NPU 2 PFSH: Medical History Reactive depression (situational) Hematochezia Diarrhea Iridocyclitis Dxed OD by DR. Guzmán OD in [place] Allergic rhinitis, seasonal Personal history of kidney stones History of nocturia Anxiety Chronic neck and back pain Hypothyroid ADHD Low testosterone in male he is getting testosterone through on line doctor Surgical History H/O lithotripsy Hx of LASIK Family History Father Liver disease of alcoholic cirrhosis Mother Benign tumor of back Mental and behavioral problem Heart disease, Onset Age: 58 of [place] 2 wks shy of divorce Grandfather Prostate cancer Social History Smoking and tobacco/nicotine status: current every day tobacco/nicotine user e- cigarettes Quit status (tobacco/nicotine): not considering quitting Alcohol intake: former Substance/Drug Use: never Household members: significant other Marital status: Single Number of children: 0 Highest education level completed: High School Graduate Current occupational status: employed 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 No abnormal movements except for mild psychomotor retardation. Mostly cooperative with exam and moderate distress. Speech was normal rate and volume. Mood described as depressed affect irritable. Thought process organized. Thought content: Patient endorsed suicidal ideation with a plan, he denied homicidal ideation, there were no delusions reported or noted, he denied any auditory or visual hallucinations. Attention and concentration were intact and memory appeared reliable but none were formally tested. He is alert and oriented x 3. Insight and judgment are impaired impulse control is impaired. Vitals/I&O/Wt Last Vital Signs Temp 97.5 F L 10/06/24 06:00 Pulse 79 10/06/24 06:00 Resp 16 10/06/24 06:00 BP 111/69 10/06/24 06:00 Pulse Ox 96 10/06/24 06:00 O2 Del Method Room Air 10/06/24 06:00 Weight last 48 hrs Weight 94.347 kg Data NPU 10/05/24 12:19 10/05/24 12:19 A&P Assessment and plan (1) Depression, unspecified: Qualifiers: Depression Type: major depressive disorder Major depression recurrence: recurrent Active/Remission status: currently active Major depression episode severity: severe Psychotic features: with psychotic features Qualified Code(s): F33.3 - Major depressive disorder, recurrent, severe with psychotic symptoms (2) Suicidal ideation: (3) Anxiety: (4) Reactive depression (situational): (5) Suicidal ideation: (6) Lumbar disc disease with radiculopathy: Plan 44-year-old white male who is known to the system through previous inpatient hospitalization. He presented with depression, anxiety, suicidality and a positive UDS with cannabis use. He endorsed being suicidal but on willing to take medication due to it not being his fault that he is depressed. 1. Encourage individual, group and milieu therapy. 2. Recommend sober living treatment at the highest level of care to which the patient is willing to commit. 3. Continue q-15 minute checks for safety.? 4.? Encourage starting antidepressant. 5.?Will attempt to gather collateral information. PDMP PDMP Reviewed: Not Reviewed Involuntary Hold Information 2 Hold Status: Legal Status: 96 Hour Hold Date/Time Hold Expires: October 11, 2024 @1200 96 Hour Hold: 96 Hour Involuntary Admission: Yes Attestations NPU 2 Medical Necessity Statement*: Inpatient hospitalization is medically necessary and the clinically appropriate intervention at this time. We will monitor/initiate medications and make changes as indicated. The patient will be in the hospital for over 2 midnights. The patient's likely length of stay is 3-5 days. Coding Level of Care Code Acute Code for Chg Fwd Diagnoses Severe episode of recurrent major depressive disorder, with psychotic features F33.3 Depression Type: major depressive disorder Major depression recurrence: recurrent Active/Remission status: currently active Major depression episode severity: severe Psychotic features: with psychotic features Suicidal ideation R45.851 Anxiety F41.9 Reactive depression (situational) F32.9 Lumbar disc disease with radiculopathy M51.16
[2024-10-06] MEDS: OLANZapine 5 mg ODT PO (12:15)
[2024-10-06] MEDS: haloperidol 5 mg Tablet PO (13:12)
[2024-10-06 14:00] VITALS: BP 134/97; PULSE 100; RESP 18; TEMP 37.1; O2SAT 98
--- NOTE | 2024-10-06 14:19 | PC.NURSE ---
PT INTRUSIVE AT [facility], REQUESTING ANXIETY MEDICATIONS FREQUENTLY. HAS BEEN GIVEN VISTARIL 50 MG, ZYDIS 5 MG AND HALDOL 5 MG ORDERED FOR INCREASED ANXIETY AND AGITATION. PT CONTINUES TO ASK FOR MEDICATIONS TO REDUCE ANXIETY. PT EDUCATED TO COMPLETE BREATHING EXERCISES. PT LAUGHED AND STATED YOUR JOKING. VISTARIL 50 MG GIVEN ORDERED AT 1422. SUPPORT VOICED.
--- NOTE | 2024-10-06 17:59 | PC.OT ---
OT eval held per nursing (10/06); will attempt again at later time.
[2024-10-06] MEDS: trazodone 50 mg Tablet PO (20:17)
[2024-10-06 21:36] VITALS: BP 109/66; PULSE 66; RESP 18; TEMP 36.5; O2SAT 94
[2024-10-07] MEDS: nicotine 2 mg Gum BUCCAL ×3 (03:51→17:39)
[2024-10-07] MEDS: levothyroxine 100 mcg Tablet PO (05:54)
[2024-10-07 06:00] VITALS: BP 104/70; PULSE 76; RESP 17; TEMP 36.8; O2SAT 97
[2024-10-07] MEDS: duloxetine 30 mg Capsule PO (08:18)
[2024-10-07] MEDS: hyDROXYzine 25 mg Capsule 50 MG PO ×2 (08:18→14:10)
[2024-10-07] MEDS: gabapentin 300 mg Capsule 600 MG PO ×3 (08:18→20:46)
[2024-10-07] MEDS: ibuprofen 600 mg Tablet PO ×2 (08:23→17:48)
--- NOTE | 2024-10-07 08:51 | P.NPUPN_ITS ---
Subjective NPU 2 Subjective: Patient presented today reporting that he is doing okay. He continued to report the same position that he did yesterday. Namely that he is not interested and does not plan to initiate any medications. That he is suicidal and will kill himself upon discharge if released. And endorses that the only thing that we will change the circumstance is his insurance namely his [employer]. insurance providing for him the way that they initially agreed and not keep him in this situation that he reports leaves him homeless and about to lose his car and without options. He denied any side effects to his current home medications. Mental Status Exam 2 MSE Comments: This is a well-nourished well-developed white male in hospital scrubs with adequate grooming and intense eye contact. No abnormal movements except for mild psychomotor retardation. Mostly cooperative with exam and moderate distress. Speech was normal rate and volume. Mood described as depressed affect irritable. Thought process organized. Thought content: Patient endorsed suicidal ideation with a plan, he denied homicidal ideation, there were no delusions reported or noted, he denied any auditory or visual hallucinations. Attention and concentration were intact and memory appeared reliable but none were formally tested. He is alert and oriented x 3. Insight and judgment are impaired impulse control is impaired. Vitals/I&O/Wt Last Vital Signs Temp 98.3 F 10/07/24 06:00 Pulse 76 10/07/24 06:00 Resp 17 10/07/24 06:00 BP 104/70 10/07/24 06:00 Pulse Ox 97 10/07/24 06:00 O2 Del Method Room Air 10/06/24 14:00 Weight last 48 hrs Weight 94.347 kg Data NPU 10/05/24 12:19 10/05/24 12:19 A&P Assessment and plan (1) Depression, unspecified: Qualifiers: Depression Type: major depressive disorder Major depression recurrence: recurrent Active/Remission status: currently active Major depression episode severity: severe Psychotic features: with psychotic features Qualified Code(s): F33.3 - Major depressive disorder, recurrent, severe with psychotic symptoms (2) Suicidal ideation: (3) Anxiety: (4) Reactive depression (situational): (5) Suicidal ideation: (6) Lumbar disc disease with radiculopathy: Plan 44-year-old white male who is known to the system through previous inpatient hospitalization. He presented with depression, anxiety, suicidality and a positive UDS with cannabis use. He endorsed being suicidal but on willing to take medication due to it not being his fault that he is depressed. 1. Encourage individual, group and milieu therapy. 2. Recommend sober living treatment at the highest level of care to which the patient is willing to commit. 3. Continue q-15 minute checks for safety.? 4.? Encourage starting antidepressant. 5.?Will attempt to gather collateral information. PDMP PDMP Reviewed: Not Reviewed Involuntary Hold Information 2 Hold Status: Legal Status: 96 Hour Hold Date/Time Hold Expires: October 11, 2024 @1200 96 Hour Hold: 96 Hour Involuntary Admission: Yes Attestations NPU 2 Medical Necessity Statement*: Inpatient hospitalization is medically necessary and the clinically appropriate intervention at this time. We will monitor/initiate medications and make changes as indicated. The patient's likely length of stay is 3-5 days. Coding Level of Care Code Acute Code for Chg Fwd Diagnoses Severe episode of recurrent major depressive disorder, with psychotic features F33.3 Depression Type: major depressive disorder Major depression recurrence: recurrent Active/Remission status: currently active Major depression episode severity: severe Psychotic features: with psychotic features Suicidal ideation R45.851 Anxiety F41.9 Reactive depression (situational) F32.9 Lumbar disc disease with radiculopathy M51.16
[2024-10-07] MEDS: fluticasone nasal spray 16gm Btl 2 SPRAY NASAL (08:53)
[2024-10-07] MEDS: haloperidol 5 mg Tablet PO ×2 (09:56→17:47)
--- NOTE | 2024-10-07 10:14 | PC.NURSE ---
Anxiety Patient reports anxiety. Vistaril not effective in decreasing level of anxiety. This nurse administered zyprexa 5mg ODT. Will continue to monitor patient
--- NOTE | 2024-10-07 11:07 | PC.NURSE ---
Phone With patient's permission, and permission from Dr. Ponce, this nurse removed patient's phone from the console of his car at 1050 with armed security officer Narinder present. Patient needs his phone to look up a prescription medication. Prosthodontist/Owner Sandra also made aware.
--- NOTE | 2024-10-07 11:09 | PC.NURSE ---
This nurse called Derian Laws at [phone] for information about dose and strength of testosterone. This was due on Wednesday, per patient. oRny Laws is not available on the weekend because it is outside business hours.
[2024-10-07 14:00] VITALS: BP 95/54; PULSE 72; RESP 16; TEMP 36.8; O2SAT 95
[2024-10-07] MEDS: OLANZapine 5 mg ODT PO (17:01)
[2024-10-07 20:11] VITALS: BP 108/71; PULSE 61; RESP 17; TEMP 36.5; O2SAT 97
[2024-10-08] MEDS: levothyroxine 100 mcg Tablet PO (05:27)
[2024-10-08] MEDS: nicotine 2 mg Gum BUCCAL ×5 (05:27→14:39)
[2024-10-08] MEDS: OLANZapine 5 mg ODT PO ×2 (05:31→20:42)
[2024-10-08 06:00] VITALS: BP 124/88; PULSE 92; RESP 18; TEMP 37.1; O2SAT 96
--- NOTE | 2024-10-08 07:25 | PC.NURSE ---
Morning assessment During morning assessment, patient states that he feels a lot better today, my body and my mind. Patient denies suicidal ideation, anxiety, depression, AVH, and homicidal thoughts. Patient says that he was briefly on prednisone for his back and leg pain and he suspects that this caused him to have a breakdown.
[2024-10-08] MEDS: gabapentin 300 mg Capsule 600 MG PO ×3 (08:35→20:42)
[2024-10-08] MEDS: duloxetine 30 mg Capsule PO (08:35)
[2024-10-08] MEDS: fluticasone nasal spray 16gm Btl 2 SPRAY NASAL (08:36)
--- NOTE | 2024-10-08 11:35 | P.NPUPN_ITS ---
Subjective NPU 2 Subjective: Patient presented today reporting that he is feeling better. We discussed the fact that he had recently gotten some steroids to help with his back pain and that is possible that his mood dysregulation and irritability could be in part explained by the steroids. He was very apologetic for the tone and behavior that he had had in our initial encounters. We discussed him working with the social work team on appropriate follow-up measures and exploring discharge once we have some sense of what his follow-up might look like. He denied any side effects to his medication. Mental Status Exam 2 MSE Comments: This is a well-nourished well-developed white male in hospital scrubs with adequate grooming and intense eye contact. No abnormal movements except for mild psychomotor retardation. Mostly cooperative with exam in no acute distress. Speech was normal rate and volume. Mood described as feeling better, affect congruent thought process organized. Thought content: Patient denied suicidal or homicidal ideation, there were no delusions reported or noted, he denied any auditory or visual hallucinations. Attention and concentration were intact and memory appeared reliable but none were formally tested. He is alert and oriented x 3. Insight and judgment are improving and impulse control is improving. Vitals/I&O/Wt Last Vital Signs Temp 98.7 F 10/08/24 06:00 Pulse 92 10/08/24 06:00 Resp 18 10/08/24 06:00 BP 124/88 10/08/24 06:00 Pulse Ox 96 10/08/24 06:00 O2 Del Method Room Air 10/07/24 14:00 Weight last 48 hrs Weight 95.527 kg Data NPU 10/05/24 12:19 10/05/24 12:19 A&P Assessment and plan (1) Depression, unspecified: Qualifiers: Depression Type: major depressive disorder Major depression recurrence: recurrent Active/Remission status: currently active Major depression episode severity: severe Psychotic features: with psychotic features Qualified Code(s): F33.3 - Major depressive disorder, recurrent, severe with psychotic symptoms (2) Suicidal ideation: (3) Anxiety: (4) Reactive depression (situational): (5) Suicidal ideation: (6) Lumbar disc disease with radiculopathy: Plan 44-year-old white male who is known to the system through previous inpatient hospitalization. He presented with depression, anxiety, suicidality and a positive UDS with cannabis use. He endorsed being suicidal but on willing to take medication due to it not being his fault that he is depressed. 1. Encourage individual, group and milieu therapy. 2. Recommend sober living treatment at the highest level of care to which the patient is willing to commit. 3. Continue q-15 minute checks for safety.? 4.? Encourage starting antidepressant. He is still resistant to an antidepressant but was open to a low-dose of trazodone for sleep. 5.?Will attempt to gather collateral information. PDMP PDMP Reviewed: Not Reviewed Involuntary Hold Information 2 Hold Status: Legal Status: 96 Hour Hold Date/Time Hold Expires: October 11, 2024 @1200 96 Hour Hold: 96 Hour Involuntary Admission: Yes Attestations NPU 2 Medical Necessity Statement*: Inpatient hospitalization is medically necessary and the clinically appropriate intervention at this time. We will monitor/initiate medications and make changes as indicated. The patient's likely length of stay is 1-3 days. Coding Level of Care Code Acute Code for g Fwd Diagnoses Severe episode of recurrent major depressive disorder, with psychotic features F33.3 Depression Type: major depressive disorder Major depression recurrence: recurrent Active/Remission status: currently active Major depression episode severity: severe Psychotic features: with psychotic features Suicidal ideation R45.851 Anxiety F41.9 Reactive depression (situational) F32.9 Lumbar disc disease with radiculopathy M51.16
[2024-10-08 14:00] VITALS: BP 165/90; PULSE 74; RESP 18; TEMP 36.6; O2SAT 94
[2024-10-08] MEDS: ibuprofen 600 mg Tablet PO (16:28)
[2024-10-08] MEDS: nicotine 4 mg lozenge MUCOUS MEM ×2 (16:59→19:55)
[2024-10-08] MEDS: hyDROXYzine 25 mg Capsule 50 MG PO (17:45)
[2024-10-08 20:14] VITALS: BP 98/73; PULSE 77; RESP 18; TEMP 37.3; O2SAT 96
[2024-10-08] MEDS: trazodone 50 mg Tablet 25 MG PO (21:21)
[2024-10-08] MEDS: haloperidol 5 mg Tablet PO (21:51)
[2024-10-09] MEDS: nicotine 4 mg lozenge MUCOUS MEM ×5 (05:00→15:48)
[2024-10-09] MEDS: ibuprofen 600 mg Tablet PO (05:00)
[2024-10-09] MEDS: levothyroxine 100 mcg Tablet PO (05:00)
[2024-10-09 05:52] VITALS: BP 142/74; PULSE 74; RESP 18; TEMP 36.3; O2SAT 96
[2024-10-09] MEDS: duloxetine 30 mg Capsule PO (08:14)
[2024-10-09] MEDS: gabapentin 300 mg Capsule 600 MG PO ×2 (08:14→15:16)
[2024-10-09] MEDS: fluticasone nasal spray 16gm Btl 2 SPRAY NASAL (08:15)
[2024-10-09] MEDS: nicotine 2 mg Gum BUCCAL (09:42)
[2024-10-09 15:57] VITALS: BP 142/74; PULSE 74; RESP 18; TEMP 36.3; O2SAT 96
--- NOTE | 2024-10-09 16:02 | W.PM.NPUDCS ---
Diagnoses at Discharge Discharge Diagnosis (1) Depression, unspecified: Status: Acute Qualifiers: Active/Remission status: currently active Depression Type: major depressive disorder Major depression episode severity: severe Major depression recurrence: recurrent Psychotic features: with psychotic features Qualified Code(s): F33.3 - Major depressive disorder, recurrent, severe with psychotic symptoms (2) Suicidal ideation: Status: Resolved (3) Anxiety: Status: Acute (4) Reactive depression (situational): Status: Acute (5) Lumbar disc disease with radiculopathy: Status: Acute Reason for Visit Reason for Visit: anxiety Brief History: History of Present Illness Capo Dunlap is a 44 year old male who presented to the emergency department with the following report: Chief Complaint: Psychiatric Symptoms Stated Complaint: anxiety Time Seen by Provider: 10/05/24 11:54 Source: patient Mode of arrival: ambulatory Limitations: no limitations History of Present Illness: 44-year-old male states that he has been having extreme anxiety along with depression since February. States his life is falling apart and he is now having suicidal ideations with a plan to kill himself and wants to get help. He denies any worsening improving factors. Associated symptoms: Reports depression and suicidal ideation. He was admitted to the neuropsychiatric unit for definitive treatment of those issues. He is known to [facility] through limited inpatient and some outpatient services namely through the crisis stabilization center. An excerpt of his inpatient discharge summary is included below for context and the fact that there limited substantive changes. He presented today reporting that he is struggling. He reports that he had a very bad injury last February which left him disabled and insurance companies playing games with him. Because of the games or playing he has lost his house and is about to be homeless and lost his car or is about to lose his car and is depressed and suicidal because of that. He reports that there is no way he will get better and less the situation changes in the situation will only change if the insurance company fixes with a gun. And he reports that he should not have to take medication because of the depression and suicidality that they caused. And that he will not take any medication and he will not leave the hospital until he is better. Then we discharged home before he is better he will kill himself. Otherwise he denies any other issues and reports that he is not adding or changing medication. Per his 07/09/2023 [facility] inpatient psychiatric discharge summary: Discharge Diagnosis (1) Depression, unspecified: Status: Acute (2) Suicidal ideation: Status: Acute Reason for Visit Reason for Visit: back pain, SI Brief History: History of Present Illness Capo Dunlap is a 43 year old male with a history of multiple inpatient hospitalizations most recently 1 month ago in [facility] who presented to the emergency department complaining of suicidal ideation along with lower back pain. The patient was admitted to the neuropsychiatric unit for further evaluation and treatment. Patient had reported that he had been residing at [facility] for the past few weeks and had been effectively homeless for several months and states that he had been feeling more depressed recently and stated that he had been having more frequent suicidal thoughts. The patient reports that he has chronic pain in his neck and states that he has been struggling with managing acute back pain. He states that he is had had problems with managing his care since he had an accident where an 80 pound roll of tar paper fell on his neck 2 years ago. He had reported loss of consciousness and states that he has struggled with his mood. He reports that he struggles with chronic headaches and stated that he had been concerned that again was somehow trying to kill him and that he had needed to get off the streets in order to avoid this from occurring. He had reported occasional use of marijuana and stated that he had occasional tempted to use methamphetamine in order to stay awake while he was homeless. He had stated that he had been hospitalized previously for psychosis and depression secondarily to the use of methamphetamine use. Patient reported that he had not been taking any medications recently. He had endorsed past history of paranoia and psychosis but denies any problems today with this problem. He had endorsed having worsening depression with an inability to manage his pain. He reports low energy and reports having infrequent suicidal thoughts. He reports having difficulties falling asleep and staying asleep. He denies any history of mynor. Inpatient hospitalizations: He reports at least 10 previous psychiatric hospitalizations over the last 2 years since the accident. He reports that he had recently been hospitalized in the hospital and near [facility] 1 month ago. Outpatient psychiatric history: He reports limited follow-up with outpatient psychiatrist stating that after his hospitalizations he has had limited psychotherapy or medication management under psychiatrist treatment other than having previously been treated for ADHD during his childhood and approximately 5 years well receiving treatment for ADHD as an adult. Previous medications include Vyvanse. Allergies: No known drug allergies Medical history: Renal stones, low testosterone Surgical history: Lithotripsy Current medications: Risperidone, olanzapine, doxepin, clonidine, Wellbutrin XL 150 mg daily Drug and alcohol history: Patient reports marijuana use, and a history of infrequent methamphetamine use. He has reported no drug or alcohol treatment in the past. Family psychiatric history: None Legal history: None actively Social history: The patient grew up near [facility] which is near [place]. He reports being raised by his biological parents. He reported no history of trauma during his childhood or adulthood. He has 1 older sibling. He had received some special education classes and had diagnosis of ADHD but earned a regular diploma graduated from high school. 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 He is currently not on disability. He had previously been living in a camper on his aunts property but left there a few months ago and had been homeless since that time. He does report having limited social supports. Hospital Course Hospital Course He slowly acclimated to the individual, group and milieu therapies. He presented endorsing significant depression and suicidality reporting that he would kill himself if he was discharged. He was continued on his home medications without incident but was not open initially to adding or changing anything. It was later identified that there was likely a correlation between a recent steroid administration and his significant irritability. He had a positive response to his distance from the steroid administration, continuing his medications and being in the milieu. We did initiate trazodone 25 mg p.o. daily to assist with sleep that was helpful. Also as needed Haldol 5 mg daily as well for anxiety and irritability. He worked with the social work team to establish appropriate follow-up services and was connected to appropriate community resources. He was able to contract for safety outside of the hospital prior to discharge. During the hospitalization, patient had routine laboratory studies which were within normal limits except for few outliers. Additionally there was a general medical evaluation which was also within normal limits and revealed no new acute processes. At the time of discharge, he denied psychosis or lethality. Mood and anxiety were well managed. Patient endorsed a plan to avoid all drugs of abuse, and agreed to follow-up with the aftercare recommendations of the treatment team. Patient was evaluated and deemed to be absent credible lethality, and achieved maximum benefit from inpatient hospitalization, so he was discharged. Involuntary Hold Information Hold Status: Legal Status: 96 Hour Hold Date/Time Hold Expires: October 11, 2024 @1200 96 Hour Hold: 96 Hour Involuntary Admission: Yes Mental Status Exam MSE Comments: This is a well-nourished well-developed white male in hospital scrubs with adequate grooming and intense eye contact. No abnormal movements except for mild psychomotor retardation. Mostly cooperative with exam in no acute distress. Speech was normal rate and volume. Mood described as feeling better, affect congruent thought process organized. Thought content: Patient denied suicidal or homicidal ideation, there were no delusions reported or noted, he denied any auditory or visual hallucinations. Attention and concentration were intact and memory appeared reliable but none were formally tested. He is alert and oriented x 3. Insight and judgment are improving and impulse control is improving. Discharge Data Studies Completed and Pending: Laboratory Results WBC 9.31 10^3/uL (3.2 9-11.43) 10/05/24 12:19 RBC 4.97 10^6/uL (3.8 5-5.65) 10/05/24 12:19 Hgb 15.00 g/dL (11.27 -16.99) 10/05/24 12:19 Hct 45.2 % (37-53) 10/05/24 12:19 MCV 90.9 fl (82-101) 10/05/24 12:19 MCH 30.2 pg (27-33) 10/05/24 12:19 MCHC 33.2 g/dL (30-55) 10/05/24 12:19 RDW 13.1 % (12.1-15.1 ) 10/05/24 12:19 Plt Count 381 10^3/cmm (157 -399) 10/05/24 12:19 MPV 9.5 fL (7.4-10.4) 10/05/24 12:19 Neut % (Auto) 62.9 % 10/05/24 12:19 Lymph % (Auto) 27.8 % 10/05/24 12:19 Atlantic % (Auto) 8.8 % 10/05/24 12:19 Eos % (Auto) 0.0 % 10/05/24 12:19 Baso % (Auto) 0.3 % 10/05/24 12:19 Neut # (Auto) 5.85 10^3/uL (1.8 -7.7) 10/05/24 12:19 Lymph # (Auto) 2.6 10^3/uL (0.8- 4.8) 10/05/24 12:19 Atlantic # (Auto) 0.8 10^3/uL (0.2- 0.9) 10/05/24 12:19 Eos # (Auto) 0.0 10^3/uL (0.0- 0.8) 10/05/24 12:19 Baso # (Auto) 0.0 10^3/uL (0.0- 0.1) 10/05/24 12:19 Nucleated RBC % (a uto) 0 % 10/05/24 12:19 Nucleated RBCs # 0.0 /100WBC 10/05/24 12:19 Sodium 140 mmol/L (136-1 45) 10/05/24 12:19 Potassium 3.5 mmol/L (3.5-5 .1) 10/05/24 12:19 Chloride 102 mmol/L (98-10 7) 10/05/24 12:19 Carbon Dioxide 25 mmol/L (22-29) 10/05/24 12:19 Anion Gap 16.5 (5-19) 10/05/24 12:19 BUN 9 mg/dL (6-20) 10/05/24 12:19 Creatinine 1.1 mg/dL (0.7-1. 2) 10/05/24 12:19 GFR Calculation 73.4 mL/min (90-1 30) L 10/05/24 12:19 Glucose 116 mg/dL (65-115 ) H 10/05/24 12:19 Calculated Osmolal ity 290 mOsm/kg (285- 295) 10/05/24 12:19 Calcium 9.2 mg/dL (8.5-10 .5) 10/05/24 12:19 Total Bilirubin 0.4 mg/dL (0.15-1 .2) 10/05/24 12:19 AST 25 U/L (0-40) 10/05/24 12:19 ALT 19 U/L (0-41) 10/05/24 12:19 Alkaline Phosphata se 76 U/L (40-130) 10/05/24 12:19 Total Protein 7.4 g/dL (6.6-8.7 ) 10/05/24 12:19 Albumin 4.4 g/dL (3.5-5.2 ) 10/05/24 12:19 Globulin 3.0 g/dL (1.3-4.6 ) 10/05/24 12:19 TSH 0.06 uIU/mL (0.27 -4.20) L 10/05/24 12:19 Salicylates < 0.3 mg/dL (3-10 ) L 10/05/24 12:19 Urine Opiates Scre en Negative ng/mL (N egative) 10/05/24 12:00 Acetaminophen < 5.0 ug/mL (10-3 0) L 10/05/24 12:19 Ur Barbiturates Sc reen Negative ng/mL (N egative) 10/05/24 12:00 Ur Phencyclidine S crn Negative ng/mL (N egative) 10/05/24 12:00 Ur Amphetamines Sc reen Negative ng/mL (N egative) 10/05/24 12:00 U Benzodiazepines Scrn Negative ng/mL (N egative) 10/05/24 12:00 Urine Cocaine Scre en Negative ng/mL (N egative) 10/05/24 12:00 U Marijuana (THC) Screen Positive ng/mL (N egative) H 10/05/24 12:00 Ethyl Alcohol < 10 mg/dL (0-10) 10/05/24 12:19 Vitals: Last Vital Signs Temp 97.3 F L 10/09/24 15:57 Pulse 74 10/09/24 15:57 Resp 18 10/09/24 15:57 BP 142/74 10/09/24 15:57 Pulse Ox 96 10/09/24 15:57 O2 Del Method Room Air 10/07/24 14:00 Discharge Plan Discharge Patient Disposition: Home Condition: Stable Prescriptions: New trazodone 50 mg Tablet 25 mg PO BEDTIME PRN (Reason: Sleep) 30 Days Qty: 15 1RF haloperidol 5 mg Tablet 5 mg PO 1XD PRN (Reason: Agitation) 30 Days Qty: 15 1RF Continued (DME) tens unit See Rx Instructions .Route .MEDSUPPLY Qty: 1 0RF Rx Instructions: As directed levothyroxine 100 mcg tablet 100 mcg PO DAILY Qty: 90 1RF gabapentin 300 mg capsule 600 mg PO TID 30 Days Qty: 180 1RF duloxetine [Cymbalta] 30 mg capsule,delayed release(DR/EC) 30 mg PO DAILY PRN (Reason: muscle pain) 30 Days Qty: 30 1RF Rx Instructions: Take once a day as needed Discontinued methylprednisolone [Medrol (Hansel)] 4 mg tablets,dose pack See Rx Instructions PO PER PKG DIR Qty: 21 0RF Rx Instructions: PO PER PKG DIR for 6 days Discharge Orders: Discharge Order (Routine); Ordered 10/09/24 Ordered By: Darrell Ponce Referrals: [facility] [Other] (You need to go into the office and fill out paperwork before you can be scheduled for therapy. ) [facility] [Outside] - 10/10/24 1:30 pm (Initial appointment with Ramon Hernandes. ) Discharge Diet: Regular Discharge Activity: Resume usual activity Patient Instructions: Trazodone (By mouth), Depression (DC), Help Prevent Suicide (DC), Opioid Safety Discharge Attestations NPU Time Spent in Discharge Care*: less than 30 min Specific Discharge Activities: Specific discharge activities: educating patient, discussing with piano case maker/social workers/dc planners, documenting/other paperwork and evaluating patient/reviewing data Coding Level of Care Code Acute Code for Chg Fwd Diagnoses Severe episode of recurrent major depressive disorder, with psychotic features F33.3 Active/Remission status: currently active Depression Type: major depressive disorder Major depression episode severity: severe Major depression recurrence: recurrent Psychotic features: with psychotic features Suicidal ideation R45.851 Anxiety F41.9 Reactive depression (situational) F32.9 Lumbar disc disease with radiculopathy M51.16
== END 2024-10-09 16:15 | disposition home or self-care (01) | DRG 885 ==
LOC: ER 12:10 → NP 12:54
PROVIDERS: Admitting Provider Psychiatry & Neurology Psychiatry; Emergency Provider Emergency Medicine; Visit Provider Psychiatry & Neurology Psychiatry
DX: F33.3 Major depressive disorder, recurrent, severe with psychotic symptoms (principal); R45.851 Suicidal ideations; Z59.00 Homelessness unspecified; F41.9 Anxiety disorder, unspecified; Z87.442 Personal history of urinary calculi; G89.29 Other chronic pain; M54.2 Cervicalgia; E03.9 Hypothyroidism, unspecified; F90.9 Attention-deficit hyperactivity disorder, unspecified type; F17.290 Nicotine dependence, other tobacco product, uncomplicated; M54.16 Radiculopathy, lumbar region
CPT/HCPCS: 36415; 80053; 80306; 80307; 84443; 85025; 96372; 97150; 97165; 99285; J1071; J2060; J9999

== ENCOUNTER 2024-10-19 06:51 | Emergency (ER) | payer SELFPAY ==
[2024-10-19 07:04] VITALS: BP 155/94; PULSE 94; RESP 20; TEMP 36.7; O2SAT 98
--- NOTE | 2024-10-19 07:15 | ED_ITS ---
HPI - Seizure 2 General: Chief Complaint: Seizure Stated Complaint: medication reaction Time Seen by Provider: 10/19/24 07:15 History of Present Illness: HPI Narrative: 44-year-old male presents emergency room complaining of having had a seizure overnight. He has not previously had seizures. He is on multiple medications they recently added trazodone and haloperidol. He thinks that the gabapentin may have because he says that the only medicine he took yesterday. Began around 4 PM yesterday with what he describes as just not being in his head. Then an hour later he began having shakes. Around 1 AM he states he woke up on the floor in his bathroom does not recall how he. No loss of bowel or bladder control. He remembers all the episodes of shaking prior to that. He has not had any postictal phase. No headache. Associated symptoms: Deny chest pain, chills or fever(s) Related Data Previous Rx's ?Medication ?Instructions ?Recorded tens unit #1 ea 06/27/24 duloxetine 30 mg capsule,delayed 30 mg PO DAILY PRN mu scle pain 30 10/09/24 release (Cymbalta) days #30 caps gabapentin 300 mg capsule 600 mg (2 x 300 mg) PO TID 3 0 days 10/09/24 #180 caps haloperidol 5 mg tablet 5 mg PO 1XD PRN Agitation 30 days 10/09/24 #15 tabs levothyroxine 100 mcg tablet 100 mcg PO DAILY #90 tabs 10/09/24 trazodone 50 mg tablet 25 mg (1/2 x 50 mg) PO BEDTI ME PRN 10/09/24 Sleep 30 days #15 tabs Allergies Allergy/AdvReac Type Severity Reaction Status Date / Time No Known Allergies Allergy Verified 10/05/24 16:05 Review of Systems 2 Const: Denies: fever(s) or chills Card: Denies: chest pain Resp: Denies: dyspnea GI: Denies: abdominal pain : Denies: dysuria, urinary frequency or urinary urgency Musc: Denies: neck pain or back pain Skin/Breast: Denies: rash PFSH ED 2 PFSH: Medical History Psychiatric care Reactive depression (situational) Hematochezia Diarrhea Iridocyclitis Dxed OD by DR. Ramirez BELL in [place] Allergic rhinitis, seasonal Personal history of kidney stones History of nocturia Anxiety Chronic neck and back pain Hypothyroid ADHD Low testosterone in male he is getting testosterone through on line doctor Surgical History H/O lithotripsy Hx of LASIK Family History Father Liver disease of alcoholic cirrhosis Mother Benign tumor of back Mental and behavioral problem Heart disease, Onset Age: 58 of [place] 2 wks shy of divorce Grandfather Prostate cancer Social History Smoking and tobacco/nicotine status: current every day tobacco/nicotine user e- cigarettes Quit status (tobacco/nicotine): not considering quitting Alcohol intake: former Substance/Drug Use: never Household members: significant other Marital status: Single Number of children: 0 Highest education level completed: High School Graduate Current occupational status: employed 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[employer] Physical Exam 2 Const: ORIENTATION/CONSCIOUSNESS: Yes awake, Yes oriented to person, Yes oriented to place and Yes oriented to time HENMT: COMMON NORMALS: normocephalic, atraumatic and hearing grossly normal bilaterally HEAD & SCALP: normocephalic and atraumatic Resp: COMMON NORMALS: normal respiratory effort, No retractions, No use of accessory muscles and clear to auscultation bilaterally AUSCULTATION: clear to auscultation bilaterally Cardio: COMMON NORMALS: regular rate, regular rhythm and No murmurs present (Cardio) RATE: regular rate RHYTHM: regular rhythm GI: COMMON NORMALS: Soft to palpation and No hepatosplenomegaly present A USCULTATION: Yes normoactive bowel sounds PALPATION: Yes Soft to palpation, No Tenderness to palpation present (GI), No Guarding due to palpation present (GI) and Yes No hepatosplenomegaly present Extremity: COMMON NORMALS: normal to inspection, capillary refill normal, no clubbing, cyanosis or edema, no calf tenderness and no pedal edema Neuro: SENSORIUM/ORIENTATION: Yes oriented to person, Yes oriented to place and Yes oriented to time Skin: COMMON NORMALS: no rashes or lesions noted GENERAL SKIN EXAM: no rashes or lesions noted Course 2 Vital Signs: Vital signs: Vital Signs Temperature 98.0 F 10/19/24 07:04 Pulse Rate 94 10/19/24 07:04 Respiratory Rate 20 H 10/19/24 07:04 Blood Pressure 155/94 10/19/24 07:04 Pulse Oximetry 98 10/19/24 07:04 Oxygen Delivery Me thod Room Air 10/19/24 07:04 MDM - Seizure MDM Narrative Medical decision making narrative: Patient became anxious and left AMA. He was distracted noised by the sounds in the emergency room department nurses talked with him tried to dissuade him from leaving. He can return if he prefer would like to complete the workup. CT of the head that was done was negative. Lab Data 10/19/24 08:12 10/19/24 08:12 Labs: Radiology Impressions Head CT 10/19/24 07:34 IMPRESSION: No acute intracranial abnormality. All radiology interpretation(s) finalized by discharge Discharge Plan Discharge Patient Disposition: Left Against Medical Advice Clinical Impression: Medication reaction Condition: Stable Prescriptions: No Action (DME) tens unit See Rx Instructions .Route .MEDSUPPLY Qty: 1 0RF Rx Instructions: As directed trazodone 50 mg Tablet 25 mg PO BEDTIME PRN (Reason: Sleep) 30 Days Qty: 15 1RF levothyroxine 100 mcg tablet 100 mcg PO DAILY Qty: 90 1RF gabapentin 300 mg capsule 600 mg PO TID 30 Days Qty: 180 1RF duloxetine [Cymbalta] 30 mg capsule,delayed release(DR/EC) 30 mg PO DAILY PRN (Reason: muscle pain) 30 Days Qty: 30 1RF Rx Instructions: Take once a day as needed haloperidol 5 mg Tablet 5 mg PO 1XD PRN (Reason: Agitation) 30 Days Qty: 15 1RF Patient Instructions: Opioid Safety, Pain Management Print Language: Bol[place]ian Coding Level of Care Code ED Lute Packer Or Applier for Sakina Yang
--- NOTE | 2024-10-19 07:34 | CTR_ITS ---
PROCEDURE INFORMATION: Exam: CT Head Without Contrast Exam date and time: 10/19/2024 7:54 AM Age: 44 years old Clinical indication: Pain; Headache; Additional info: New onset seizure TECHNIQUE: Imaging protocol: Computed tomography of the head without contrast. Radiation optimization: All CT scans at this facility use at least one of these dose optimization techniques: automated exposure control; mA and/or kV adjustment per patient size (includes targeted exams where dose is matched to clinical indication); or iterative reconstruction. COMPARISON: No relevant prior studies available. RADIATION DOSE METRICS: Total DLP (mGy-cm): 1145.73 FINDINGS: Brain: There is no evidence of acute parenchymal hemorrhage, extra-axial collection, or acute infarction. There is no mass effect, midline shift, or downward herniation. Cerebral ventricles: No ventriculomegaly. Paranasal sinuses: Visualized sinuses are unremarkable. No fluid levels. Mastoid air cells: Visualized mastoid air cells are well aerated. Bones: Unremarkable. No acute fracture. Soft tissues: Unremarkable. CT/CT head wo con* [id number] IMPRESSION: No acute intracranial abnormality.
[2024-10-19 08:19] LABS: Basophils % 0.3 %; Eosinophils # 0.1 10^3/uL (0.0-0.8); Eosinophils % 0.6 %; Hematocrit 46.3 % (37-53); Lymphocytes # 1.7 10^3/uL (0.8-4.8); Lymphocytes % 21.1 %; Mean Corpuscular HGB Conc 32.2 g/dL (30-55); Mean Corpuscular Hemoglobin 29.7 pg (27-33); Mean Corpuscular Volume 92.2 fl (82-101); Monocytes # 0.7 10^3/uL (0.2-0.9); Neutrophils % 68.7 %; Nucleated Red Blood Cells % 0 %; Platelet Count 342 10^3/cmm (157-399); Red Blood Count 5.02 10^6/uL (3.85-5.65)
[2024-10-19 08:34] LABS: Bacteria Urine None Seen /hpf; Hyaline Casts Urine 0-4 /lpf; RBC Urine 0-2 /hpf (0-2); Squamous Epithelial Cell Urine 0-5 /hpf (0-5); WBC Urine 0-5 /hpf (0-5)
[2024-10-19 08:35] LABS: Ammonia 32 umol/L (16-60); Lactic Sepsis W/Reflex 1.2 mmol/L (0.5-2.2)
[2024-10-19 08:36] LABS: Alanine Aminotransferase 15 U/L (0-41); Albumin Level 4.1 g/dL (3.5-5.2); Alkaline Phosphatase 87 U/L (40-130); Anion Gap 14.2 (5-19); Aspartate Amino Transferase 21 U/L (0-40); Blood Urea Nitrogen 8 mg/dL (6-20); Calcium 8.9 mg/dL (8.5-10.5); Carbon Dioxide 26 mmol/L (22-29); Chloride 103 mmol/L (98-107); Creatinine Clr Calc Pharmacy 103.7241; Globulin 3.1 g/dL (1.3-4.6); Glomerular Filtration Rate 73.4 mL/min (90-130); Glucose 129 mg/dL (65-115); Osmolality Calculated 288 mOsm/kg (285-295); Potassium 4.2 mmol/L (3.5-5.1); Sodium 139 mmol/L (136-145); Total Bilirubin 0.2 mg/dL (0.15-1.2); Total Protein 7.2 g/dL (6.6-8.7)
[2024-10-19 08:38] LABS: Amphetamines Screen Urine Negative (Negative); Barbiturates Screen Urine Negative (Negative); Benzodiazepines Screen Urine Negative (Negative); Cocaine Screen Urine Negative (Negative); Opiate Screen Urine Negative (Negative); PCP Screen Urine Negative (Negative); THC Screen Urine Positive (Negative)
[2024-10-19 08:39] LABS: Creatine Phosphokinase 327 U/L (39-308)
[2024-10-19 08:41] LABS: Add Urine Microscopic? YES; Bilirubin Urine Neg (Negative); Blood Urine Neg (Negative); Glucose Urine UA Norm (Normal); Ketones Urine Negative (Negative); Leukocyte Esterase Urine Trace (Negative); Nitrate Urine Negative (Negative); Protein Urine Neg (Negative); Specific Gravity, Urine 1.025 (1.005-1.030); Urine Appearance Clear (CLEAR); Urine Color Yellow (Yellow); Urobilinogen Urine Neg (Negative); pH Urine 5 (5-7)
[2024-10-19 08:42] LABS: Add Urine Culture? No
== END 2024-10-19 08:36 | disposition left against medical advice (07) ==
PROVIDERS: Emergency Provider Family Medicine
DX: T50.905A Adverse effect of unspecified drugs, medicaments and biological substances, initial encounter (principal); X58.XXXA Exposure to other specified factors, initial encounter; F17.290 Nicotine dependence, other tobacco product, uncomplicated
CPT/HCPCS: 36415; 70450; 80053; 80306; 81001; 82140; 82550; 83605; 85025; 99284

== ENCOUNTER → 2024-12-14 11:40 | Outpatient (BNVA) | payer OTHER, SELFPAY | PROVIDERS: PCP Family Medicine; Visit Provider Nurse Practitioner | DX: F33.1 Major depressive disorder, recurrent, moderate (principal); F41.1 Generalized anxiety disorder; Z79.899 Other long term (current) drug therapy | CPT/HCPCS: 80061; 83036; 84443 ==

== ENCOUNTER → 2024-12-20 09:07 | Outpatient (BNVA) | payer OTHER, SELFPAY | PROVIDERS: PCP Family Medicine; Visit Provider Nurse Practitioner | DX: F19.10 Other psychoactive substance abuse, uncomplicated (principal) | CPT/HCPCS: 80307 ==

== ENCOUNTER → 2025-02-20 15:10 | Outpatient (BNVA) | payer OTHER, SELFPAY ==
[2024-12-21 09:28] VITALS: BP 144/96; BMI 27.7
== END ==
PROVIDERS: PCP Family Medicine; Visit Provider Nurse Practitioner
DX: F12.90 Cannabis use, unspecified, uncomplicated (principal)
CPT/HCPCS: 80307

== ENCOUNTER 2025-05-18 13:35 | Inpatient (IN) | payer SELFPAY ==
[2024-12-21 09:28] VITALS: BP 144/96; BMI 27.7
[2025-05-18 13:44] VITALS: BP 145/89; PULSE 112; RESP 16; TEMP 36.8; O2SAT 98; BMI 32.5
--- NOTE | 2025-05-18 14:00 | ECG_ITS ---
[facility] Date: 2025-05[facility]18 Pat Name: Capo Dunlap Department: Room: Gender: Male User Experience Researcher: : 1980 Requested By: Jose Martin Allison Order Number: [id number] Kd MD: Lina Finn M.D. Measurements Intervals [place] Rate: 102 P: 38 OR: 136 QRS: -37 QRSD: 104 T: 32 QT: 326 QTc: 425 Interpretive Statements SINUS TACHYCARDIA LEFT AXIS DEVIATION [QRS AXIS < -30] PATTERN CONSISTENT WITH PULMONARY DISEASE No previous ECG available for comparison Electronically Signed On 05-19-2025 08:31:11 FIRE MANAGEMENT OFFICER by Lina Finn M.D. [email or web address]
[2025-05-18 14:15] LABS: Glucose Urine UA Negative (Normal); Nitrate Urine Negative (Negative); Specific Gravity, Urine 1.024 (1.005-1.030)
[2025-05-18 14:17] LABS: Add Urine Microscopic? YES
[2025-05-18 14:23] LABS: PCP Screen Urine Negative (Negative)
[2025-05-18 14:29] LABS: Hematocrit 45.3 % (37-53); Hemoglobin 15.30 g/dL (11.27-16.99); Mean Corpuscular HGB Conc 33.8 g/dL (30-55); Mean Corpuscular Hemoglobin 29.9 pg (27-33); Mean Corpuscular Volume 88.6 fl (82-101); Nucleated Red Blood Cells % 0 %; Platelet Count 326 10^3/cmm (157-399); Red Blood Count 5.11 10^6/uL (3.85-5.65); White Blood Count 12.15 10^3/uL (3.29-11.43)
--- NOTE | 2025-05-18 14:33 | PC.NURSE ---
96 hour paperwork read by this nurse with security present.
[2025-05-18 14:38] LABS: UA Slide Review UA Slide Review Perf
[2025-05-18 14:53] LABS: Alanine Aminotransferase 32 U/L (0-41); Albumin Level 4.4 g/dL (3.5-5.2); Alkaline Phosphatase 88 U/L (40-130); Anion Gap 19.2 (5-19); Aspartate Amino Transferase 33 U/L (0-40); Blood Urea Nitrogen 18 mg/dL (6-20); Calcium 9.2 mg/dL (8.5-10.5); Carbon Dioxide 22 mmol/L (22-29); Chloride 100 mmol/L (98-107); Creatinine Clr Calc Pharmacy 100.8408; Free T4 Free Thyroxine 0.94 ng/dL (0.82-1.77); Globulin 3.1 g/dL (1.3-4.6); Glucose 113 mg/dL (65-115); Osmolality Calculated 287 mOsm/kg (285-295); Potassium 4.2 mmol/L (3.5-5.1); Sodium 137 mmol/L (136-145); Thyroid Stimulating Hormone 8.76 uIU/mL (0.27-4.20); Total Protein 7.5 g/dL (6.6-8.7)
[2025-05-18 14:58] LABS: Acetaminophen < 5.0 ug/mL (10-30); Salicylate < 0.3 mg/dL (3-10)
--- NOTE | 2025-05-18 15:14 | PC.PHAR ---
Med rec had to be completed via pharmacy for current med list. Last fill dates entered in pharmacy notes
--- NOTE | 2025-05-18 16:33 | ED.C_ITS ---
HPI - Psych 2 General: Chief Complaint: Psychiatric Symptoms Stated Complaint: MHE Time Seen by Provider: 05/18/25 13:41 History of Present Illness: 45-year-old male longstanding history of bipolar, depression, PTSD, anxiety, presenting with several day history of self reported suicidal ideation, reports he has been feeling very depressed lately, declined to tell me exactly what is causing him to feel depressed, but reports that he does feel a an acute desire to end his own life and does not want to live anymore, he reports that he has considered driving into traffic as well as slitting his wrist but has not yet acted on it, he denies any toxic ingestions, he does take Synthroid for history of Yaritza's thyroiditis and reports no overdose of this medication. He denies any acute medical complaints chest pain fever recent illnesses or infection. Related Data Home Medications ?Medication ?Instructions ?Recorded ?Confirmed celecoxib 200 mg capsule (Celebrex) 200 mg PO DAILY 05/18/25 levothyroxine 100 mcg tablet 100 mcg PO DAILY 05/18/25 05/18/25 Previous Rx's ?Medication ?Instructions ?Recorded tens unit #1 ea 06/27/24 alprazolam 0.5 mg tablet (Xanax) 0.5 mg PO DAILY PRN p anic attacks 04/24/25 #30 tabs bupropion HCl 150 mg 24 hr tablet, 150 mg PO QAM #30 t abs 04/24/25 extended release (Wellbutrin XL) quetiapine 200 mg tablet (Seroquel) 200 mg PO .HS #30 tabs 04/24/25 Allergies Allergy/AdvReac Type Severity Reaction Status Date / Time No Known Allergies Allergy Verified 04/24/25 08:59 PFSH ED 2 PFSH: Medical History Vitamin B 12 deficiency Medication management Encounter for screening for cardiovascular disorders Insomnia 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 Guzmán OD in [place] Allergic rhinitis, seasonal Personal history of kidney stones History of nocturia Anxiety Chronic neck and back pain Hypothyroid ADHD Low testosterone in male he is getting testosterone through on line doctor Surgical History H/O lithotripsy Hx of RAJWINDER Family History Father Liver disease of alcoholic cirrhosis Mother Benign tumor of back Mental and behavioral problem Heart disease, Onset Age: 58 of [place] 2 wks shy of divorce Grandfather Prostate cancer Social History Smoking and tobacco/nicotine status: current every day tobacco/nicotine user e- cigarettes Quit status (tobacco/nicotine): not considering quitting Alcohol intake: former Substance/Drug Use: never Household members: significant other Marital status: Single Number of children: 0 Highest education level completed: High School Graduate Current occupational status: employed 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 Normal color per patient. Neuro: Alert and oriented, no slurred speech, sensation and strength grossly intact all 4 extremities Psych: Patient appears coherent, cognizant, not overtly responding to internal stimuli, flat affect, somewhat withdrawn in providing information, calm and cooperative with questioning and evaluation, appropriate responses Course 2 Reevaluation(s): Reevaluation #1: Patient with no actionable labs that require medical intervention, medically cleared, spoke with Dr. Ponce of psychiatry who accepts the patient for admission to our [facility] Time: 17:25 Vital Signs: Vital signs: Vital Signs Temperature 98.3 F 05/18/25 13:44 Pulse Rate 112 H 05/18/25 13:44 Respiratory Rate 16 05/18/25 13:44 Blood Pressure 145/89 05/18/25 13:44 Pulse Oximetry 98 05/18/25 13:44 Oxygen Delivery Me thod Room Air 05/18/25 13:44 MDM - Psych Medical Decision Making 45-year-old male history of psychiatric disease presenting with self-reported suicidal ideation with 2 plans but no attempts, on exam patient is coherent, flat/withdrawn affect, does not appear acutely psychotic, mildly tachycardic but otherwise with a benign physical exam, no medical complaints endorsed, will obtain medical screening evaluation including free T4 given history of thyroiditis on Synthroid to rule out exogenous intentional overdose of Synthroid, reassess but would anticipate transfer to psychiatric facility here if beds are available versus outside facility. 96-hour hold and affidavit signed by myself given patient's report on my evaluation. Lab Data Labs showing mild leukocytosis, normal free T4, normal kidney function and LFTs, negative salicylates ethanol and Tylenol levels UDS positive for benzos which Marie takes on a prescribed basis per his report and has in his medication history 05/18/25 14:15 05/18/25 14:15 Laboratory Results WBC 12.15 10^3/uL (3.29-11.43) H 05/18/25 14:15 RBC 5.11 10^6/uL (3.85-5.65) 05/18/25 14:15 Hgb 15.30 g/dL (11.27-16.99) 05/18/25 14:15 Hct 45.3 % (37-53) 05/18/25 14:15 MCV 88.6 fl (82-101) 05/18/25 14:15 MCH 29.9 pg (27-33) 05/18/25 14:15 MCHC 33.8 g/dL (30-55) 05/18/25 14:15 RDW 12.8 % (12.1-15.1) 05/18/25 14:15 Plt Count 326 10^3/cmm (157-399) 05/18/25 14:15 MPV 9.4 fL (7.4-10.4) 05/18/25 14:15 Neut % (Auto) 69.7 % 05/18/25 14:15 Lymph % (Auto) 21.5 % 05/18/25 14:15 [place] % (Auto) 7.7 % 05/18/25 14:15 Eos % (Auto) 0.6 % 05/18/25 14:15 Baso % (Auto) 0.2 % 05/18/25 14:15 Neut # (Auto) 8.47 10^3/uL (1.8-7.7) H 05/18/25 14:15 Lymph # (Auto) 2.6 10^3/uL (0.8-4.8) 05/18/25 14:15 [place] # (Auto) 0.9 10^3/uL (0.2-0.9) 05/18/25 14:15 Eos # (Auto) 0.1 10^3/uL (0.0-0.8) 05/18/25 14:15 Baso # (Auto) 0.0 10^3/uL (0.0-0.1) 05/18/25 14:15 Nucleated RBC % (auto) 0 % 05/18/25 14:15 Nucleated RBCs # 0.0 /100WBC 05/18/25 14:15 Sodium 137 mmol/L (136-145) 05/18/25 14:15 Potassium 4.2 mmol/L (3.5-5.1) 05/18/25 14:15 Chloride 100 mmol/L (98-107) 05/18/25 14:15 Carbon Dioxide 22 mmol/L (22-29) 05/18/25 14:15 Anion Gap 19.2 (5-19) H 05/18/25 14:15 BUN 18 mg/dL (6-20) 05/18/25 14:15 Creatinine 1.1 mg/dL (0.7-1.2) 05/18/25 14:15 GFR Calculation 73.1 mL/min (90-130) L 05/18/25 14:15 Glucose 113 mg/dL (65-115) 05/18/25 14:15 Calculated Osmolality 287 mOsm/kg (285-295) 05/18/25 14:15 Calcium 9.2 mg/dL (8.5-10.5) 05/18/25 14:15 Total Bilirubin 0.3 mg/dL (0.15-1.2) 05/18/25 14:15 AST 33 U/L (0-40) 05/18/25 14:15 ALT 32 U/L (0-41) 05/18/25 14:15 Alkaline Phosphatase 88 U/L (40-130) 05/18/25 14:15 Total Protein 7.5 g/dL (6.6-8.7) 05/18/25 14:15 Albumin 4.4 g/dL (3.5-5.2) 05/18/25 14:15 Globulin 3.1 g/dL (1.3-4.6) 05/18/25 14:15 TSH 8.76 uIU/mL (0.27-4.20) H 05/18/25 14:15 Free T4 0.94 ng/dL (0.82-1.77) 05/18/25 14:15 Urine Color Yellow (Yellow) 05/18/25 14:06 Urine Appearance Clear (CLEAR) 05/18/25 14:06 Urine pH 6.0 (5-7) 05/18/25 14:06 Ur Specific [place] 1.024 (1.005-1.030) 05/18/25 14:06 Urine Protein Negative (Negative) 05/18/25 14:06 Urine Glucose (UA) Negative (Normal) 05/18/25 14:06 Urine Ketones Trace (Negative) 05/18/25 14:06 Urine Blood Negative (Negative) 05/18/25 14:06 Urine Nitrate Negative (Negative) 05/18/25 14:06 Urine Bilirubin Negative (Negative) 05/18/25 14:06 Urine Urobilinogen 1.0 mg/dL (Negative) 05/18/25 14:06 Ur Leukocyte Esterase Negative (Negative) 05/18/25 14:06 Urine RBC 0-2 /hpf (0-2) 05/18/25 14:06 Urine WBC 0-5 /hpf (0-5) 05/18/25 14:06 Ur Squamous Epith Cells 0-5 /hpf (0-5) 05/18/25 14:06 Calcium Oxalate Crystal 15-25 /hpf H 05/18/25 14:06 Amorphous Sediment Not Reportable 05/18/25 14:06 Urine Bacteria None seen /hpf (NONE) 05/18/25 14:06 Hyaline Casts 1.21 /lpf 05/18/25 14:06 Salicylates < 0.3 mg/dL (3-10) L 05/18/25 14:15 Urine Opiates Screen Negative ng/mL (Negative) 05/18/25 14:06 Acetaminophen < 5.0 ug/mL (10-30) L 05/18/25 14:15 Ur Barbiturates Screen Negative ng/mL (Negative) 05/18/25 14:06 Ur Phencyclidine Scrn Negative ng/mL (Negative) 05/18/25 14:06 Ur Amphetamines Screen Negative ng/mL (Negative) 05/18/25 14:06 U Benzodiazepines Scrn Positive ng/mL (Negative) H 05/18/25 14:06 Urine Cocaine Screen Negative ng/mL (Negative) 05/18/25 14:06 U Marijuana (THC) Screen Negative ng/mL (Negative) 05/18/25 14:06 No radiology studies performed this visit EKG Data EKG 1: I personally reviewed and interpreted this EKG as follows: EKG interpretation date: 05/18/25 EKG interpretation time: 15:38 Interpretation: Sinus tachycardia 102 bpm, left axis deviation, no STEMI, no ectopy, QTc 384 ms Discharge Plan Discharge Patient Disposition: Admitted As Inpatient Clinical Impression: Suicidal ideation Condition: Stable Coding Level of Care Code ED Secondary Connector Armature for Sakina Yang
--- NOTE | 2025-05-18 19:45 | PC.NURSE ---
Report called to [facility] in [facility].
[2025-05-18 20:16] VITALS: BP 153/115; PULSE 99; RESP 18; O2SAT 96
[2025-05-18 20:31] VITALS: BP 153/115; PULSE 99; RESP 18; O2SAT 96
[2025-05-19 06:00] VITALS: BP 129/95; PULSE 90; RESP 17; TEMP 36.3; O2SAT 97
--- NOTE | 2025-05-19 11:48 | PC.NURSE ---
Patient came to nurses station demanding to eat in his room. Patient was verbally escalated. This RN explained why we do not allow food in the room. Patient asked why he had not gotten his xanax yet. Explained to him that Dr. Ponce will need to see him before he prescribes it. Patient was offered other PRN medications and he refused. He stated that every admission this unit dopes him up and then lets him out on the street. Patient was educated on the prn that could be given and he refused. He was verbally escalating. Explained to patient that this one time that I would let him eat in his room and he refused.
--- NOTE | 2025-05-19 13:40 | P.NPUHP_ITS ---
Providers/Chief Complaint 2 Admitting Physician: Darrell Ponce MD Primary Care Provider: Carol Gunn MD Chief Complaint: MHE HPI NPU History of Present Illness Capo Dunlap is a 45 year old male who presented to the emergency department with the following report: Chief Complaint: Psychiatric Symptoms Stated Complaint: MHE Time Seen by Provider: 05/18/25 13:41 History of Present Illness: 45-year-old male longstanding history of bipolar, depression, PTSD, anxiety, presenting with several day history of self reported suicidal ideation, reports he has been feeling very depressed lately, declined to tell me exactly what is causing him to feel depressed, but reports that he does feel a an acute desire to end his own life and does not want to live anymore, he reports that he has considered driving into traffic as well as slitting his wrist but has not yet acted on it, he denies any toxic ingestions, he does take Synthroid for history of Yaritza's thyroiditis and reports no overdose of this medication. He denies any acute medical complaints chest pain fever recent illnesses or infection. He was admitted to the neuropsychiatric unit for definitive treatment of those issues. He is known to [facility] through inpatient and outpatient services. His last inpatient stay was at the end of November of this year and an excerpt of his last discharge summary is included below for context and the fact that he denies substantive changes. He has been consistent with his outpatient services last seeing his outpatient med provider on 04/24/2025. He presented today reporting that he has been without his medication for couple of weeks due to economics and then found himself feeling overwhelmed and suicidal. He reported: Chief complaint Follow-up for medication management and discussion of upcoming procedures and disability evaluation. History of the present complaint Saw outpatient provider in April 2025 and has been consistent with appointments. Last visit at this clinic was on December 09, 2024. Reports recent changes made to medication regimen by outpatient provider Anaid Agustin. Experienced a period of approximately two weeks without prescribed medication prior to this encounter, due to financial constraints and being short on funds for copay. States that during this time, was not taking any medication. Describes that use of steroids can cause feeling loopy, and notes that not having prescribed medication for a couple of weeks contributed to not being in the right state of mind to deal with daily stressors. Indicates awareness of the impact of medication lapses on mental state. Mentions upcoming procedures and appointments, including a scheduled radiofrequency ablation (RFA) for back pain with Dr. Prince in [place] on Wednesday, and a disability screening with a psychiatrist at the [facility] on at 10 AM. Expresses concern about potentially missing these appointments due to current circumstances. Reports current living situation as residing in a homeless prison. Expresses desire not to miss the disability evaluation, indicating its importance. Mental health history Consistent engagement with outpatient behavioral health since April 2024, with last clinic visit December 09, 2024. Interrupted psychotropic regimen for approximately two weeks due to financial barriers and medication access issues. No prior admissions to crisis stabilization center; aware of available support for medication funding. Scheduled psychiatric evaluation in conjunction with disability hearing in mid-May 2025. Social history Lives in a homeless prison. Reports irregular eating patterns, often delaying the first meal until mid-afternoon (around 2?3 PM). No other social habits, family situation, work situation, exercise routines, or substance use discussed. Per his 10/09/2024 [facility] inpatient psychiatric discharge summary: Discharge Diagnosis (1) Depression, unspecified: Status: Acute Qualifiers: Active/Remission status: currently active Depression Type: major depressive disorder Major depression episode severity: severe Major depression recurrence: recurrent Psychotic features: with psychotic features Qualified Code(s): F33.3 - Major depressive disorder, recurrent, severe with psychotic symptoms (2) Suicidal ideation: Status: Resolved (3) Anxiety: Status: Acute (4) Reactive depression (situational): Status: Acute (5) Lumbar disc disease with radiculopathy: Status: Acute Reason for Visit Reason for Visit: anxiety Brief History: History of Present Illness Capo Dunlap is a 44 year old male who presented to the emergency department with the following report: Chief Complaint: Psychiatric Symptoms Stated Complaint: anxiety Time Seen by Provider: 10/05/24 11:54 Source: patient Mode of arrival: ambulatory Limitations: no limitations History of Present Illness: 44-year-old male states that he has been having extreme anxiety along with depression since February. States his life is falling apart and he is now having suicidal ideations with a plan to kill himself and wants to get help. He denies any worsening improving factors. Associated symptoms: Reports depression and suicidal ideation. He was admitted to the neuropsychiatric unit for definitive treatment of those issues. He is known to [facility] through limited inpatient and some outpatient services namely through the crisis stabilization center. An excerpt of his inpatient discharge summary is included below for context and the fact that there limited substantive changes. He presented today reporting that he is struggling. He reports that he had a very bad injury last February which left him disabled and insurance companies playing games with him. Because of the games or playing he has lost his house and is about to be homeless and lost his car or is about to lose his car and is depressed and suicidal because of that. He reports that there is no way he will get better and less the situation changes in the situation will only change if the insurance company fixes with a gun. And he reports that he should not have to take medication because of the depression and suicidality that they caused. And that he will not take any medication and he will not leave the hospital until he is better. Then we discharged home before he is better he will kill himself. Otherwise he denies any other issues and reports that he is not adding or changing medication. Per his 07/09/2023 [facility] inpatient psychiatric discharge summary: Discharge Diagnosis (1) Depression, unspecified: Status: Acute (2) Suicidal ideation: Status: Acute Reason for Visit Reason for Visit: back pain, SI Brief History: History of Present Illness Capo Dunlap is a 43 year old male with a history of multiple inpatient hospitalizations most recently 1 month ago in [facility] who presented to the emergency department complaining of suicidal ideation along with lower back pain. The patient was admitted to the neuropsychiatric unit for further evaluation and treatment. Patient had reported that he had been residing at [facility] for the past few weeks and had been effectively homeless for several months and states that he had been feeling more depressed recently and stated that he had been having more frequent suicidal thoughts. The patient reports that he has chronic pain in his neck and states that he has been struggling with managing acute back pain. He states that he is had had problems with managing his care since he had an accident where an 80 pound roll of tar paper fell on his neck 2 years ago. He had reported loss of consciousness and states that he has struggled with his mood. He reports that he struggles with chronic headaches and stated that he had been concerned that again was somehow trying to kill him and that he had needed to get off the streets in order to avoid this from occurring. He had reported occasional use of marijuana and stated that he had occasional tempted to use methamphetamine in order to stay awake while he was homeless. He had stated that he had been hospitalized previously for psychosis and depression secondarily to the use of methamphetamine use. Patient reported that he had not been taking any medications recently. He had endorsed past history of paranoia and psychosis but denies any problems today with this problem. He had endorsed having worsening depression with an inability to manage his pain. He reports low energy and reports having infrequent suicidal thoughts. He reports having difficulties falling asleep and staying asleep. He denies any history of mynor. Inpatient hospitalizations: He reports at least 10 previous psychiatric hospitalizations over the last 2 years since the accident. He reports that he had recently been hospitalized in the hospital and near [facility] 1 month ago. Outpatient psychiatric history: He reports limited follow-up with outpatient psychiatrist stating that after his hospitalizations he has had limited psychotherapy or medication management under psychiatrist treatment other than having previously been treated for ADHD during his childhood and approximately 5 years well receiving treatment for ADHD as an adult. Previous medications include Vyvanse. Allergies: No known drug allergies Medical history: Renal stones, low testosterone Surgical history: Lithotripsy Current medications: Risperidone, olanzapine, doxepin, clonidine, Wellbutrin XL 150 mg daily Drug and alcohol history: Patient reports marijuana use, and a history of infrequent methamphetamine use. He has reported no drug or alcohol treatment in the past. Family psychiatric history: None Legal history: None actively Social history: The patient grew up near [facility] which is near [place]. He reports being raised by his biological parents. He reported no history of trauma during his childhood or adulthood. He has 1 older sibling. He had received some special education classes and had diagnosis of ADHD but earned a regular diploma graduated from high school. 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 He is currently not on disability. He had previously been living in a camper on his aunts property but left there a few months ago and had been homeless since that time. He does report having limited social supports. Hospital Course He slowly acclimated to the individual, group and milieu therapies. He presented endorsing significant depression and suicidality reporting that he would kill himself if he was discharged. He was continued on his home medications without incident but was not open initially to adding or changing anything. It was later identified that there was likely a correlation between a recent steroid administration and his significant irritability. He had a positive response to his distance from the steroid administration, continuing his medications and being in the milieu. We did initiate trazodone 25 mg p.o. daily to assist with sleep that was helpful. Also as needed Haldol 5 mg daily as well for anxiety and irritability. He worked with the social work team to establish appropriate follow-up services and was connected to appropriate community resources. He was able to contract for safety outside of the hospital prior to discharge. During the hospitalization, patient had routine laboratory studies which were within normal limits except for few outliers. Additionally there was a general medical evaluation which was also within normal limits and revealed no new acute processes. At the time of discharge, he denied psychosis or lethality. Mood and anxiety were well managed. Patient endorsed a plan to avoid all drugs of abuse, and agreed to follow-up with the aftercare recommendations of the treatment team. Patient was evaluated and deemed to be absent credible lethality, and achieved maximum benefit from inpatient hospitalization, so he was discharged. Meds NPU Home Medications ?Medication ?Instructions ?Recorded ?Confirmed ?Last Taken ?Type tens unit #1 ea 06/27/24 05/18/25 Unkn own Rx celecoxib 200 mg capsule (Celebrex) 200 mg PO DAILY 05/18/25 Unknown History alprazolam 0.5 mg tablet (Xanax) 0.5 mg PO DAILY PRN p anic attacks 04/24/25 05/18/25 Unknown Rx #30 tabs bupropion HCl 150 mg 24 hr tablet, 150 mg PO QAM #30 t abs 04/24/25 05/18/25 Unknown Rx extended release (Wellbutrin XL) quetiapine 200 mg tablet (Seroquel) 200 mg PO .HS #30 tabs 04/24/25 05/18/25 Unknown Rx levothyroxine 100 mcg tablet 100 mcg PO DAILY 05/18/25 05/18/25 Unknown History Allergies Allergy/AdvReac Type Severity Reaction Status Date / Time No Known Allergies Allergy Verified 04/24/25 08:59 PFSH NPU 2 PFSH: Medical History (Updated 05/18/25 @ 17:28 by Jose Martin Allison MD) Vitamin B 12 deficiency Medication management Encounter for screening for cardiovascular disorders Insomnia 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 Guzmán OD in [place] Allergic rhinitis, seasonal Personal history of kidney stones History of nocturia Anxiety Chronic neck and back pain Hypothyroid ADHD Low testosterone in male he is getting testosterone through on line doctor Surgical History H/O lithotripsy Hx of LASIK Family History Father Liver disease of alcoholic cirrhosis Mother Benign tumor of back Mental and behavioral problem Heart disease, Onset Age: 58 of [place] 2 wks shy of divorce Grandfather Prostate cancer Social History Smoking and tobacco/nicotine status: current every day tobacco/nicotine user e- cigarettes Quit status (tobacco/nicotine): not considering quitting Alcohol intake: former Substance/Drug Use: never Household members: significant other Marital status: Single Number of children: 0 Highest education level completed: High School Graduate Current occupational status: employed 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 No abnormal movements except for mild psychomotor retardation. Cooperative with exam and moderate distress. Speech was normal rate and volume. Mood described as overwhelmed, affect anxious and congruent. Thought process organized. Thought content: Patient endorsed suicidal ideation with a plan, he denied homicidal ideation, there were no delusions reported or noted, he denied any auditory or visual hallucinations. Attention and concentration were intact and memory appeared reliable but none were formally tested. He is alert and oriented x 3. Insight fair, judgment and impulse control are impaired. Vitals/I&O/Wt Last Vital Signs Temp 97.4 F L 05/19/25 06:00 Pulse 90 05/19/25 06:00 Resp 17 05/19/25 06:00 BP 129/95 05/19/25 06:00 Pulse Ox 97 05/19/25 06:00 O2 Del Method Room Air 05/19/25 06:00 Weight last 48 hrs Weight 99.79 kg Data NPU 05/18/25 14:15 05/18/25 14:15 A&P Assessment and plan 1. Depression, unspecified: 2. Suicidal ideation: 3. Anxiety: 4. Reactive depression (situational): 5. Suicidal ideation: 6. Lumbar disc disease with radiculopathy: Plan: This is a 45-year-old white male who is known to the system through previous inpatient hospitalizations as well as outpatient services where he is active. He presented with depression, anxiety, suicidality and a positive UDS for benzodiazepine use he was previously positive for cannabis and hospitalizations but not at this time. Medication nonadherence has resulted in suboptimal mental state. Anxiety is present and has been previously managed with benzodiazepines, specifically Xanax, with discussion regarding appropriate dosing and risk of tolerance. Steroid use has contributed to altered mental status. Homelessness and upcoming disability evaluation are noted as significant psychosocial stressors. Plan Restarted medications and arranged for morning doses to be administered. Recommended utilizing the crisis stabilization center for assistance with medication costs if needed, and advised not to go without medication for two weeks. Will reach out to the outpatient provider on Wednesday to discuss medication strategy, specifically maintaining benzodiazepine use within the 0.5 to 1 mg range for up to 10 times per month, and emphasized the importance of using other medications as primary management with benzodiazepine reserved for rescue situations only. Advised to attend scheduled appointments, including RFA on May 23, 2025 and disability evaluation on May 24, 2025, if possible. Instructed to call if ready for RFA. 1. Encourage individual, group and milieu therapy. 2. Recommend sober living treatment at the highest level of care to which the patient is willing to commit. 3. Continue q-15 minute checks for safety.? 4.?Restart medications 5.?Will attempt to gather collateral information. PDMP PDMP Reviewed: Not Reviewed Involuntary Hold Information 2 Hold Status: Legal Status: 96 Hour Hold Date/Time Hold Expires: 05/24/25 96 Hour Hold: 96 Hour Involuntary Admission: Yes Attestations NPU 2 Medical Necessity Statement*: Inpatient hospitalization is medically necessary and the clinically appropriate intervention at this time. We will monitor/initiate medications and make changes as indicated. The patient will be in the hospital for over 2 midnights. The patient's likely length of stay is 3-5 days. Coding Level of Care Code Acute Code for Chg Fwd Diagnoses Severe episode of recurrent major depressive disorder, with psychotic features F33.3 Active/Remission status: currently active Depression Type: major depressive disorder Major depression episode severity: severe Major depression recurrence: recurrent Psychotic features: with psychotic features Suicidal ideation R45.851 Anxiety F41.9 Reactive depression (situational) F32.9 Lumbar disc disease with radiculopathy M51.16
[2025-05-19 14:00] VITALS: BP 153/88; PULSE 99; RESP 16; TEMP 37.2; O2SAT 96
[2025-05-19 20:48] VITALS: BP 138/97; PULSE 94; RESP 18; TEMP 36.6; O2SAT 94
[2025-05-19 21:14] VITALS: BMI 32.9
[2025-05-20 06:00] VITALS: BP 103/67; PULSE 78; RESP 16; TEMP 36.6; O2SAT 97
[2025-05-20 13:33] VITALS: BP 143/102; PULSE 95; RESP 16; TEMP 36.7; O2SAT 96
--- NOTE | 2025-05-20 14:16 | P.NPUPN_ITS ---
Subjective NPU 2 Subjective: Patient presented today reporting that he is feeling a little better. We continued to discuss the fact that he has a few important appointments the middle of this week and we considered whether he will be discharged in time for them. We discussed him working with the social work team on appropriate follow- up and exploring discharge. We restarted his Wellbutrin XL 150 mg which had not been accurately represented on his outpatient list. He denied any side effects to his medication. Mental Status Exam 2 MSE Comments: This is a well-nourished well-developed white male in hospital scrubs with adequate grooming and intense eye contact. No abnormal movements except for mild psychomotor retardation. Cooperative with exam and moderate distress. Speech was normal rate and volume. Mood described as a little better, affect congruent and less anxious. Thought process organized. Thought content: Patient denied suicidal or homicidal ideation, there were no delusions reported or noted, he denied any auditory or visual hallucinations. Attention and concentration were intact and memory appeared reliable but none were formally tested. He is alert and oriented x 3. Insight fair, judgment and impulse control are impaired. Vitals/I&O/Wt Last Vital Signs Temp 98.1 F 05/20/25 13:33 Pulse 95 05/20/25 13:33 Resp 16 05/20/25 13:33 BP 143/102 05/20/25 13:33 Pulse Ox 96 05/20/25 13:33 O2 Del Method Room Air 05/20/25 13:33 Weight last 48 hrs Weight 101.151 kg Data NPU 05/18/25 14:15 05/18/25 14:15 A&P Assessment and plan 1. Depression, unspecified: 2. Suicidal ideation: 3. Anxiety: 4. Reactive depression (situational): 5. Suicidal ideation: 6. Lumbar disc disease with radiculopathy: Plan: This is a 45-year-old white male who is known to the system through previous inpatient hospitalizations as well as outpatient services where he is active. He presented with depression, anxiety, suicidality and a positive UDS for benzodiazepine use he was previously positive for cannabis and hospitalizations but not at this time. Medication nonadherence has resulted in suboptimal mental state. Anxiety is present and has been previously managed with benzodiazepines, specifically Xanax, with discussion regarding appropriate dosing and risk of tolerance. Steroid use has contributed to altered mental status. Homelessness and upcoming disability evaluation are noted as significant psychosocial stressors. Plan Restarted medications and arranged for morning doses to be administered. Recommended utilizing the crisis stabilization center for assistance with medication costs if needed, and advised not to go without medication for two weeks. Will reach out to the outpatient provider on Wednesday to discuss medication strategy, specifically maintaining benzodiazepine use within the 0.5 to 1 mg range for up to 10 times per month, and emphasized the importance of using other medications as primary management with benzodiazepine reserved for rescue situations only. Advised to attend scheduled appointments, including RFA on May 23, 2025 and disability evaluation on May 24, 2025, if possible. Instructed to call if ready for RFA. 1. Encourage individual, group and milieu therapy. 2. Recommend sober living treatment at the highest level of care to which the patient is willing to commit. 3. Continue q-15 minute checks for safety.? 4.?Restarted medications 5.?Will attempt to gather collateral information. PDMP PDMP Reviewed: Not Reviewed Involuntary Hold Information 2 Hold Status: Legal Status: 96 Hour Hold Date/Time Hold Expires: 05/24/25 96 Hour Hold: 96 Hour Involuntary Admission: Yes Attestations NPU 2 Medical Necessity Statement*: Inpatient hospitalization is medically necessary and the clinically appropriate intervention at this time. We will monitor/initiate medications and make changes as indicated. The patient's likely length of stay is 2-4 days. Coding Level of Care Code Acute Code for Chg Fwd Diagnoses Severe episode of recurrent major depressive disorder, with psychotic features F33.3 Active/Remission status: currently active Depression Type: major depressive disorder Major depression episode severity: severe Major depression recurrence: recurrent Psychotic features: with psychotic features Suicidal ideation R45.851 Anxiety F41.9 Reactive depression (situational) F32.9 Lumbar disc disease with radiculopathy M51.16
[2025-05-20 20:35] VITALS: BP 132/87; PULSE 98; RESP 18; TEMP 36.7; O2SAT 97
[2025-05-21 06:00] VITALS: BP 101/72; PULSE 75; RESP 17; TEMP 36.6; O2SAT 96
[2025-05-21 14:00] VITALS: BP 133/95; PULSE 95; RESP 17; TEMP 36.5; O2SAT 98
--- NOTE | 2025-05-21 14:42 | P.NPUPN_ITS ---
Subjective NPU 2 Subjective: Patient presented today reporting that he made some calls today about the exact times of his appointments. He reports he is feeling better now that he is back on his medication and denied any side effects. We discussed the plan to work with the social work team to get him appropriate appointments and aftercare scheduled with a plan for discharge tomorrow allowing him to get to his appointments as needed on Wednesday and . We discussed the importance of him likely avoiding steroids which were the likely cause or contributing factor for his last visit. He reported a plan to do his providers before his procedure on Wednesday about issues regarding steroids. Mental Status Exam 2 MSE Comments: This is a well-nourished well-developed white male in hospital scrubs with adequate grooming and intense eye contact. No abnormal movements except for mild psychomotor retardation. Cooperative with exam and moderate distress. Speech was normal rate and volume. Mood described as better, affect congruent and less anxious. Thought process organized. Thought content: Patient denied suicidal or homicidal ideation, there were no delusions reported or noted, he denied any auditory or visual hallucinations. Attention and concentration were intact and memory appeared reliable but none were formally tested. He is alert and oriented x 3. Insight fair, judgment and impulse control are impaired. Vitals/I&O/Wt Last Vital Signs Temp 97.8 F 05/21/25 06:00 Pulse 75 05/21/25 06:00 Resp 17 05/21/25 06:00 BP 101/72 05/21/25 06:00 Pulse Ox 96 05/21/25 06:00 O2 Del Method Room Air 05/21/25 06:00 Weight last 48 hrs Weight 101.151 kg Data NPU 05/18/25 14:15 05/18/25 14:15 A&P Assessment and plan 1. Depression, unspecified: 2. Suicidal ideation: 3. Anxiety: 4. Reactive depression (situational): 5. Suicidal ideation: 6. Lumbar disc disease with radiculopathy: Plan: This is a 45-year-old white male who is known to the system through previous inpatient hospitalizations as well as outpatient services where he is active. He presented with depression, anxiety, suicidality and a positive UDS for benzodiazepine use he was previously positive for cannabis and hospitalizations but not at this time. Medication nonadherence has resulted in suboptimal mental state. Anxiety is present and has been previously managed with benzodiazepines, specifically Xanax, with discussion regarding appropriate dosing and risk of tolerance. Steroid use has contributed to altered mental status. Homelessness and upcoming disability evaluation are noted as significant psychosocial stressors. Plan Restarted medications and arranged for morning doses to be administered. Recommended utilizing the crisis stabilization center for assistance with medication costs if needed, and advised not to go without medication for two weeks. Will reach out to the outpatient provider on Wednesday to discuss medication strategy, specifically maintaining benzodiazepine use within the 0.5 to 1 mg range for up to 10 times per month, and emphasized the importance of using other medications as primary management with benzodiazepine reserved for rescue situations only. Advised to attend scheduled appointments, including RFA on May 23, 2025 and disability evaluation on May 24, 2025, if possible. Instructed to call if ready for RFA. 1. Encourage individual, group and milieu therapy. 2. Recommend sober living treatment at the highest level of care to which the patient is willing to commit. 3. Continue q-15 minute checks for safety.? 4.?Restarted medications. We discussed discharging him on his medications as he is taking them here tomorrow. Discussed discharge earlier in the day tomorrow. 5.?Will attempt to gather collateral information. PDMP PDMP Reviewed: Not Reviewed Involuntary Hold Information 2 Hold Status: Legal Status: 96 Hour Hold Date/Time Hold Expires: 05/24/25 96 Hour Hold: 96 Hour Involuntary Admission: Yes Attestations NPU 2 Medical Necessity Statement*: Inpatient hospitalization is medically necessary and the clinically appropriate intervention at this time. We will monitor/initiate medications and make changes as indicated. The patient's likely length of stay is 1 day. Coding Level of Care Code Acute Code for Chg Fwd Diagnoses Severe episode of recurrent major depressive disorder, with psychotic features F33.3 Active/Remission status: currently active Depression Type: major depressive disorder Major depression episode severity: severe Major depression recurrence: recurrent Psychotic features: with psychotic features Suicidal ideation R45.851 Anxiety F41.9 Reactive depression (situational) F32.9 Lumbar disc disease with radiculopathy M51.16
[2025-05-21 20:30] VITALS: BP 122/76; PULSE 88; RESP 18; TEMP 36.4; O2SAT 96
--- NOTE | 2025-05-21 21:14 | PC.NURSE ---
this BEER BREWER and TEXTILES AND CLOTHING TEACHER found multiple snacs including chips, cookies and trail mix in pt room. TEXTILES AND CLOTHING TEACHER offered snack to pt to be eaten in the dayroom but pt got upset and yelled and said he didnt want them. TEXTILES AND CLOTHING TEACHER placed snacks in the nurses station for the pt to eat at a later time.
[2025-05-22 05:10] VITALS: BP 122/76; PULSE 114; RESP 18; TEMP 36.3; O2SAT 95
--- NOTE | 2025-05-22 05:17 | PC.NURSE ---
BEHAVIOR PATIENT CAME TO DESK SEVERAL TIMES THIS NIGHT WANTING HIS XANAX . PATIENT WAS ADVISED THAT HE DID NOT HAVE THAT MEDICATION ON HIS MEDICATION LIST. PATIENT STATED YOUR A FUCKING LIAR. I TAKE IT AT HOME. THIS NURSE CONFIRMED THAT SAID MEDICATION, XANAX 0.5MG DAILY NEEDED FOR PANIC ATTACKS, IS ON HIS HOME MEDICATION LIST, BUT IT WAS NOT CONTINUED. HYDROXYZINE 50MG PO WAS OFFERED, PATIENT STATED I'M NOT TAKING THAT FAKE BENADRYL SHIT. PATIENT WAS TOLD HE COULD HAVE ANOTHER ZYPREXA ZYDIS AROUND 0600. PATIENT STATED YOUR JUST MEAN. EVERYBODY ELSE GIVES ME WHAT I WANT. YOUR JUST A BITCH. PATIENT WAS INFORMED THAT THIS NURSE COULD NOT SPEAK FOR OTHER PEOPLES ACTIONS, BUT THAT THIS NURSE FOLLOWS THE TIME LIMITS FOR ALL MEDICATIONS AND IS NOT ABLE TO JUST GIVE HIM CONTROLLED MEDICATIONS. THAT THERE MUST HAVE BEEN A REASON THAT THE DOCTOR DID NOT CONTINUE HIS XANAX AND THAT HE WOULD NEED TO DISCUSS IT WITH THE DOCTOR. PATIENT MUMBLED UNDER HIS BREATH HE TURNED AND WALKED AWAY.
--- NOTE | 2025-05-22 09:51 | W.PM.NPUDCS ---
Diagnoses at Discharge Discharge Diagnosis 1. Severe episode of recurrent major depressive disorder, with psychotic features: 2. Suicidal ideation: 3. Anxiety: 4. Reactive depression (situational): 5. Lumbar disc disease with radiculopathy: Reason for Visit Reason for Visit: MHE Involuntary Hold Information Hold Status: Legal Status: 96 Hour Hold Date/Time Hold Expires: 05/24/25 96 Hour Hold: 96 Hour Involuntary Admission: Yes Discharge Data Studies Completed and Pending: Laboratory Results WBC 12.15 10^3/uL (3. 29-11.43) H 05/18/25 14:15 RBC 5.11 10^6/uL (3.8 5-5.65) 05/18/25 14:15 Hgb 15.30 g/dL (11.27 -16.99) 05/18/25 14:15 Hct 45.3 % (37-53) 05/18/25 14:15 MCV 88.6 fl (82-101) 05/18/25 14:15 MCH 29.9 pg (27-33) 05/18/25 14:15 MCHC 33.8 g/dL (30-55) 05/18/25 14:15 RDW 12.8 % (12.1-15.1 ) 05/18/25 14:15 Plt Count 326 10^3/cmm (157 -399) 05/18/25 14:15 MPV 9.4 fL (7.4-10.4) 05/18/25 14:15 Neut % (Auto) 69.7 % 05/18/25 14:15 Lymph % (Auto) 21.5 % 05/18/25 14:15 Carson % (Auto) 7.7 % 05/18/25 14:15 Eos % (Auto) 0.6 % 05/18/25 14:15 Baso % (Auto) 0.2 % 05/18/25 14:15 Neut # (Auto) 8.47 10^3/uL (1.8 -7.7) H 05/18/25 14:15 Lymph # (Auto) 2.6 10^3/uL (0.8- 4.8) 05/18/25 14:15 Carson # (Auto) 0.9 10^3/uL (0.2- 0.9) 05/18/25 14:15 Eos # (Auto) 0.1 10^3/uL (0.0- 0.8) 05/18/25 14:15 Baso # (Auto) 0.0 10^3/uL (0.0- 0.1) 05/18/25 14:15 Nucleated RBC % (a uto) 0 % 05/18/25 14:15 Nucleated RBCs # 0.0 /100WBC 05/18/25 14:15 Sodium 137 mmol/L (136-1 45) 05/18/25 14:15 Potassium 4.2 mmol/L (3.5-5 .1) 05/18/25 14:15 Chloride 100 mmol/L (98-10 7) 05/18/25 14:15 Carbon Dioxide 22 mmol/L (22-29) 05/18/25 14:15 Anion Gap 19.2 (5-19) H 05/18/25 14:15 BUN 18 mg/dL (6-20) 05/18/25 14:15 Creatinine 1.1 mg/dL (0.7-1. 2) 05/18/25 14:15 GFR Calculation 73.1 mL/min (90-1 30) L 05/18/25 14:15 Glucose 113 mg/dL (65-115 ) 05/18/25 14:15 Calculated Osmolal ity 287 mOsm/kg (285- 295) 05/18/25 14:15 Calcium 9.2 mg/dL (8.5-10 .5) 05/18/25 14:15 Total Bilirubin 0.3 mg/dL (0.15-1 .2) 05/18/25 14:15 AST 33 U/L (0-40) 05/18/25 14:15 ALT 32 U/L (0-41) 05/18/25 14:15 Alkaline Phosphata se 88 U/L (40-130) 05/18/25 14:15 Total Protein 7.5 g/dL (6.6-8.7 ) 05/18/25 14:15 Albumin 4.4 g/dL (3.5-5.2 ) 05/18/25 14:15 Globulin 3.1 g/dL (1.3-4.6 ) 05/18/25 14:15 TSH 8.76 uIU/mL (0.27 -4.20) H 05/18/25 14:15 Free T4 0.94 ng/dL (0.82- 1.77) 05/18/25 14:15 Urine Color Yellow (Yellow) 05/18/25 14:06 Urine Appearance Clear (CLEAR) 05/18/25 14:06 Urine pH 6.0 (5-7) 05/18/25 14:06 Ur Specific Gravit y 1.024 (1.005-1.0 30) 05/18/25 14:06 Urine Protein Negative (Negati ve) 05/18/25 14:06 Urine Glucose (UA) Negative (Normal ) 05/18/25 14:06 Urine Ketones Trace (Negative) 05/18/25 14:06 Urine Blood Negative (Negati ve) 05/18/25 14:06 Urine Nitrate Negative (Negati ve) 05/18/25 14:06 Urine Bilirubin Negative (Negati ve) 05/18/25 14:06 Urine Urobilinogen 1.0 mg/dL (Negati ve) 05/18/25 14:06 Ur Leukocyte Jenny ase Negative (Negati ve) 05/18/25 14:06 Urine RBC 0-2 /hpf (0-2) 05/18/25 14:06 Urine WBC 0-5 /hpf (0-5) 05/18/25 14:06 Ur Squamous Epith Cells 0-5 /hpf (0-5) 05/18/25 14:06 Calcium Oxalate Cr ystal 15-25 /hpf H 05/18/25 14:06 Amorphous Sediment Not Reportable 05/18/25 14:06 Urine Bacteria None seen /hpf (N ONE) 05/18/25 14:06 Hyaline Casts 1.21 /lpf 05/18/25 14:06 Salicylates < 0.3 mg/dL (3-10 ) L 05/18/25 14:15 Urine Opiates Scre en Negative ng/mL (N egative) 05/18/25 14:06 Acetaminophen < 5.0 ug/mL (10-3 0) L 05/18/25 14:15 Ur Barbiturates Sc reen Negative ng/mL (N egative) 05/18/25 14:06 Ur Phencyclidine S crn Negative ng/mL (N egative) 05/18/25 14:06 Ur Amphetamines Sc reen Negative ng/mL (N egative) 05/18/25 14:06 U Benzodiazepines Scrn Positive ng/mL (N egative) H 05/18/25 14:06 Urine Cocaine Scre en Negative ng/mL (N egative) 05/18/25 14:06 U Marijuana (THC) Screen Negative ng/mL (N egative) 05/18/25 14:06 Vitals: Last Vital Signs Temp 97.4 F L 05/22/25 05:10 Pulse 114 H 05/22/25 05:10 Resp 18 05/22/25 05:10 BP 122/76 05/22/25 05:10 Pulse Ox 95 05/22/25 05:10 O2 Del Method Room Air 05/22/25 05:10 Discharge Plan Discharge Patient Disposition: Home Condition: Stable Prescriptions: New trazodone 50 mg Tablet 50 mg PO BEDTIME PRN (Reason: Sleep) 30 Days Qty: 30 1RF olanzapine 5 mg Tablet,Disintegrating 5 mg PO DAILY PRN (Reason: Agitation/Psychosis) 30 Days Qty: 30 1RF hydroxyzine pamoate 25 mg Capsule 50 mg PO Q6H PRN (Reason: Anxiety) 30 Days Qty: 120 1RF Continued celecoxib [Celebrex] 200 mg capsule 200 mg PO DAILY quetiapine [Seroquel] 200 mg tablet 200 mg PO .HS Qty: 30 1RF bupropion HCl [Wellbutrin XL] 150 mg tablet extended release 24 hr 150 mg PO QAM Qty: 30 1RF Changed levothyroxine 100 mcg tablet 100 mcg PO DAILY 30 Days Qty: 30 1RF Discontinued alprazolam [Xanax] 0.5 mg tablet 0.5 mg PO DAILY PRN (Reason: panic attacks) Qty: 30 0RF No Action (DME) tens unit See Rx Instructions .Route .MEDSUPPLY Qty: 1 0RF Rx Instructions: As directed Discharge Order = DC NOW: Discharge Order (Routine); Ordered 05/22/25 Ordered By: Darrell Ponce Referrals: Anaid Miguel PMHNP [Staff Physician, Psychiatry] - 05/29/25 10:45 am Referral Note: Follow up Carol Gunn MD [Primary Care Provider, Family Practice] Discharge Diet: Regular Discharge Activity: Resume usual activity Patient Instructions: Opioid Safety, Patient Portal & Sonja Instructions Discharge Attestations NPU Time Spent in Discharge Care*: less than 30 min Specific Discharge Activities: Specific discharge activities: educating patient, discussing with welfare case worker/social workers/dc planners, documenting/other paperwork and evaluating patient/reviewing data Coding Level of Care Code Acute Code for Chg Fwd Diagnoses Severe episode of recurrent major depressive disorder, with psychotic features F33.3 Depression Type: major depressive disorder Major depression recurrence: recurrent Active/Remission status: currently active Major depression episode severity: severe Psychotic features: with psychotic features Suicidal ideation R45.851 Anxiety F41.9 Reactive depression (situational) F32.9 Lumbar disc disease with radiculopathy M51.16
[2025-05-22 10:10] VITALS: BP 122/76; PULSE 114; RESP 18; TEMP 36.3; O2SAT 95
== END 2025-05-22 11:05 | disposition home or self-care (01) | DRG 885 ==
LOC: ER 18:34 → NP 18:35
PROVIDERS: Admitting Provider Psychiatry & Neurology Psychiatry; Emergency Provider Student in an Organized Health Care Education/Training Program; PCP Family Medicine; Visit Provider Psychiatry & Neurology Psychiatry
DX: F33.3 Major depressive disorder, recurrent, severe with psychotic symptoms (principal); R45.851 Suicidal ideations; Z59.01 Sheltered homelessness; F41.9 Anxiety disorder, unspecified; Z91.148 Patient's other noncompliance with medication regimen for other reason; T42.4X6A Underdosing of benzodiazepines, initial encounter; F17.290 Nicotine dependence, other tobacco product, uncomplicated; Z79.890 Hormone replacement therapy; E06.3 Autoimmune thyroiditis; F90.9 Attention-deficit hyperactivity disorder, unspecified type; M51.16 Intervertebral disc disorders with radiculopathy, lumbar region
CPT/HCPCS: 36415; 80053; 80306; 80307; 81001; 84439; 84443; 85025; 93005; 97150; 97165; 99285; J9999